=== PATIENT | female | born 1930 | race Caucasian/White ===

== ENCOUNTER 2016-08-30 12:05 | Inpatient (IN) | payer MEDICARE ==
[~2016-08-30] VITALS: Ht 162.6 cm; Wt 71.1 kg
[2016-08-30] VITALS (7 sets, daily range): BP systolic 108–183; BP diastolic 23–48; PULSE 56–72; RESP 16–22; O2SAT 93–100
[~2016-08-30 12:05] MED LIST: AMLO-39 PO; ATOR40TA69 PO; CARV3.122 PO; CLOP75TA28 PO; ENAL10TA PO; FURO-129 PO; GABA-500 PO; HYDR-3825 PO; LACT1CAP67 PO; LEVO50TA39 PO; MULT-1018 PO; OMEG-86 PO
--- NOTE | 2016-08-30 12:13 | ED.REPORT ---
HPI-Chest Pain 40 and Over Date of Service Aug 30, 2016 ED Provider: Dwight Bustamante MD 85 year old female with a history of mesenteric ischemia presents to the ED accompanied by her daughter with epigastric pain. Pain is exacerbated by eating. She was seen here in the ED one week ago for similar, at which time she received a CT scan that was negative. Five days ago she was seen here again for fecal impaction. Associated symptoms include nausea and vomiting secondary to pain. Daughter denies fever, and diarrhea. Tomorrow, the patient has a follow- up appointment with Dr. Ryan, surgery. Patient takes hydrocodone for pain. Nursing Notes Stated Complaint: CHEST, STOMACH PAIN, NAUSEA Nursing Notes Reviewed: Yes Allergies: Coded Allergies: diphenhydramine (Verified Adverse Reaction, Severe, Spasms, 08/30/16) hydromorphone (Verified Adverse Reaction, Severe, "TERRIBLE SHAKING", ) Scheduled Amlodipine (Norvasc) 5 Mg Tablet 10 MG PO DAILY Atorvastatin Calcium (Atorvastatin Calcium) 40 Mg Tablet 40 MG PO HS Carvedilol (Carvedilol) 3.125 Mg Tablet 3.125 MG PO BID Clopidogrel (Clopidogrel) 75 Mg Tablet 75 MG PO DAILY Enalapril Maleate (Enalapril Maleate) 10 Mg Tablet 20 MG PO DAILY Furosemide (Lasix) 20 Mg Tablet 20 MG PO DAILY Gabapentin (Gabapentin) 100 Mg Capsule 100 MG PO HS Lactobacillus Combination No.4 (Probiotic) 1 Each Capsule 1 EACH PO DAILY Levothyroxine (Levoxyl) 50 Mcg Tablet 50 MCG PO DAILY Multivitamin (Multi Vitamin Daily) 1 Each Tablet 1 EACH PO DAILY [place]-3S/Dha/Epa/Fish Oil/D3 (Fish Oil + D3 Softgel) Unknown Strength Capsule 1, 000 MG PO DAILY Polyethylene Glycol 3350 (Polyethylene Glycol 3350) 17 Gm Powd.pack 17 GM PO QAM Scheduled PRN Hydrocodone-Acetaminophen 7.5-325 mg (Hydrocodone-Acetaminophen 7.5-325 mg) 1 Each Tablet 1 TABLET PO Q6H PRN PRN For Pain General Time Seen by MD: 12:13 Chief Complaint Other (Epigastric Pain) Hx Obtained From: Patient, Daughter Arrived By: Walk-in Sudden in Onset?: No Onset Occurred: 1 week ago Symptom Duration: Since onset Location: : Epigastric: Substernal Quality: Painful Severity: Current: Moderate Severity: Maximum: Moderate Associated with: Reports: Nausea, Vomiting, Denies: Fever Pertinent Negative: Pt denies other symptoms Exacerbated by: Eating Pertinent Negative: Relieved by nothing Past Medical History Past Medical History Notes: Code Status: Full Code Past Medical History 1. Coronary artery disease. s/p 4 vessel CABG 2. Hypertension 3. HLD 3. CVA 4. Hypothryroidism 5. Colon cancer, s/p partial colectomy. 6. GERD with h/o hiatal hernia 7. Peripheral neuropathy 8. Varicose veins, s/p stripping Reports: Congestive heart failure Past Surgical History 1. Partial colectomy 2. 4v CABG 3. Bunionectomies 4. Vein stripping 5. Right rotator cuff surgery 6. Appendectomy 7. Hysterectomy 6. Vein stripping. 7. Mesenteric ischemia with mesenteric stenting Celiac trunk and SMA stent Family History Noncontributory Smoking History Never Smoker Social History Alcohol Use: Denies alcohol use Drug Use: Denies drug use Other Social History: Good social support, Local resident Ambulatory Status Independent Review of Systems Constitutional: Denies: Chills, Fever Respiratory: Denies: Non-productive cough, Shortness of breath GI: Reports: Abdominal pain (Epigastric), Nausea, Vomiting, Denies: Diarrhea Musculoskeletal: Denies: Back pain, Lumbar pain, Neck pain Complete sys rev & neg: except as marked. Physical Exam Initial Vital Signs Vital Signs (First) Date Time Temp Pulse Resp B/P Pulse Ox O2 Delivery O2 Flow Rate FiO2 08/30/16 12:16 36.8 72 22 183/42 100 Room Air Initial VS: Reviewed Head / Eyes: Atraumatic, Normocephalic Neck: Supple, Non-tender, Full range of motion Extremities: Vascular intact, Neuro intact, No swelling, No tenderness Skin: Warm, Dry, No cyanosis Neurologic: Alert, Oriented, Nonfocal Psychiatric: Mood/affect normal, Behavior normal, Normal thought content General/Constitutional: Awake, Alert, Well developed, Well nourished Respiratory / Chest: Breath sounds NL, Breath sounds = bilat, No respiratory distress, No rales, No rhonchi, No wheezing Cardiovascular: Heart rate NL, Regular rhythm, Heart sounds NL, No murmurs, Peripheral circulation NL, Pulses = bilaterally, No gross BP differential Abdomen: Soft, Non-tender, No guarding, No rebound, No distention Interpretation & Diagnostics Lab Results Interpretation Result Diagram: 08/30/16 1228 08/30/16 1228 Test 08/30/16 12:28 White Blood Count 7.0th/mm3 (3.8-10.1) Red Blood Count 4.30mil/mm3 (3.90-5.20) Hemoglobin 13.2g/dL (12.0-15.6) Hematocrit 38.8% (35.0-46.0) Mean Corpuscular Volume 90.2fL (81-100) Mean Corpuscular Hemoglobin 30.7pg (27.0-35.0) Mean Corpuscular Hemoglobin Concent 34.0% (32.0-37.0) Red Cell Distribution Width 12.7% (12.3-15.4) Platelet Count 201bil/L (150-400) Neutrophils (%) (Auto) 57.3% (40-74) Lymphocytes (%) (Auto) 30.5% (14-46) Monocytes (%) (Auto) 7.5% (4-12) Eosinophils (%) (Auto) 4.1% (0-5) Basophils (%) (Auto) 0.3% (0-3) Sodium Level 135mEq/L (134-144) Potassium Level 4.2mEq/L (3.5-5.2) Chloride Level 99mEq/L (97-108) Carbon Dioxide Level 20mmol/L (18-29) Blood Urea Nitrogen 30mg/dL (8-27) Creatinine 0.93mg/dL (0.57-1.00) Estimat Glomerular Filtration Rate 82mL/min (>59) Glucose Level 123mg/dL (60-99) Calcium Level 9.9mg/dL (8.5-10.1) Magnesium Level 2.7mg/dL (1.6-2.6) Total Bilirubin 0.5mg/dL (0.0-1.2) Aspartate Amino Transf (AST/SGOT) 17U/L (0-50) Alanine Aminotransferase (ALT/SGPT) 10U/L (0-32) Alkaline Phosphatase 64U/L (25-165) Troponin T < 0.010ug/L (0.0-0.011) Total Protein 7.5g/dL (6.4-8.4) Albumin 4.2g/dL (3.4-5.0) Hold Monk Top Tube Received (Received) ECG Interpretation ECG Interpretation: Sinus rhythm, rate 91 Ventricular bigeminy Prolonged [place] interval Probable left atrial enlargement Old inferior infarct Old anteroseptal infarct Lateral leads also involved Time: 12:18 Interpreted by: ED physician X-Ray Chest Interpretation Chest Xray Interpretation: IMPRESSION: No acute cardiopulmonary disease. Dictated by: Ambrose Simeon RRA Interpreted: Ana Luisa Mckeon MD on 08/30/2016 at 13:26 Transcribed by: JATIN on 08/30/2016 at 13:26 View: Portable, 1 view Interpretation / Wet Read by: Interpret - Radiologist Re-Eval/Medical Decision Source of Hx: Old records Consultation #1: Referral / Consult Name: Bobby Obrien MD Call Returned at: 12:39 Note: Discussed patient case with Dr. Obrien, Radiology. Recommends CT abdominal angiogram. Consultation #2: Referral / Consult Name: Joseph Vivas MD Consulted With: Hospitalist Call Returned at: 14:47 Commercial Insulator: Agrees with plan, Accepts admit Counseled Regarding: Diagnosis, Lab results Discharge & Departure Primary Impression: Mesenteric ischemia Disposition: ADMITTED TO HOSPITAL Discharge Condition All VS Reviewed: Yes Condition: Stable Referrals: Joseph Vivas MD (PCP) Scribe Attestation Portions of this note were transcribed by Anthony Rowe. I, Dr. Bustamante, personally performed the history, physical exam and medical decision-making; I reviewed and confirmed the accuracy of the information in the transcribed note. Signed by: Anthony Rowe. 08/30/2016, *time* copies to: Joseph Vivas MD, Kirk H MD Aug 30, 2016 12:13 ANTHONY ROWE Aug 30, 2016 12:25
[2016-08-30] MEDS ORDERED: Nitroglycerin 2% 1 Gm Ointment TOPICAL ONE (12:30)
[2016-08-30] MEDS ORDERED: Heparin 5,000 Unit/mL Inj IVPUSH PRN (12:30)
[2016-08-30] MEDS ORDERED: Heparin 25K Unit/500mL 0.45 NS 25,000 UNIT in IV Premix 1 EACH IV SCH (12:30)
[2016-08-30] MEDS ORDERED: Ondansetron 2 mg/mL 2 mL Inj ONE (12:35)
[2016-08-30 12:39] LABS: BASOPHILS % (AUTO) 0.3 % (0-3); EOSINOPHILS % (AUTO) 4.1 % (0-5); MONOCYTES % (AUTO) 7.5 % (4-12); Mean Corpuscular Hemoglobin 30.7 pg (27.0-35.0); Mean Corpuscular Volume 90.2 fL (81-100); NEUTROPHILS % (AUTO) 57.3 % (40-74); Platelet Count 201 bil/L (150-400)
[2016-08-30 13:23] LABS: Magnesium 2.7 mg/dL (1.6-2.6)
[2016-08-30 13:24] LABS: TROPONIN T < 0.010 ug/L (0.0-0.011)
--- NOTE | 2016-08-30 13:27 | DRSVH ---
PROCEDURE: X-RAY CHEST ONE VIEW, PORTABLE ([id number]) INDICATIONS: PAIN TECHNIQUE: One view of the chest was acquired. COMPARISON: [facility], CR, XR CHEST 1VW (PORTABLE), 08/23/2016, 15:45. FINDINGS: Surgical changes and devices: Median sternotomy wires. Lungs and pleura: No pleural effusions or pneumothorax. Lungs are clear. Mediastinum: Mediastinal contours appear normal. Heart size is normal. Bones and chest wall: No suspicious bony lesions. Overlying soft tissues appear unremarkable. IMPRESSION: No acute cardiopulmonary disease. Dictated by: Ambrose Simeon [facility] Interpreted: Ana Luisa Mckeon MD on 08/30/2016 at 13:26 Transcribed by: JATIN on 08/30/2016 at 13:26 Approved by: Ana Luisa Mckeon MD, PhD on 08/30/2016 at 16:44
[2016-08-30] MEDS ORDERED: POLY17PO2 PO (14:36)
[2016-08-30] MEDS ORDERED: Alum-Mag Hydrox-Simeth 30 mL Suspension PO PRN (14:50)
[2016-08-30] MEDS ORDERED: Ondansetron 2 mg/mL 2 mL Inj IVPUSH PRN (14:55)
[2016-08-30] MEDS ORDERED: Polyethylene Glycol (PEG) 17 Gm Powder PO PRN (14:55)
--- NOTE | 2016-08-30 18:00 | NUR ---
Admit Pt arrived to room 2028 via stretcher from the ED. Pt oriented to room, use of call light. Policies and procedure explained. Pt verbalized understanding. Pt alert and oriented x3. Pt has IV heparin running at 800 unit/hr to the right AC. Report given to oncoming RN.
--- NOTE | 2016-08-30 20:49 | PCM.HPMED ---
Subjective Date of Service Aug 30, 2016 Primary Provider: Admitting Physician: Bobby Obrien MD Primary Care Physician: Joseph Vivas MD Attending Physician: Bobby Obrien MD Admit Status: From the Emergency Department, 23-Hour Observation, Remote Telemetry Chief Complaint: Increased abdominal pain, concern for recurrent mesenteric ischemia History of Present Illness: This is an 85-year-old female with a recent admission for abdominal and chest pain. At that time she was concerned regarding recurrent mesenteric ischemia. She has had a SMA stent in place for about 6 months. She is having a lot of increased pain with eating over the last several months which seems to be escalating. She was admitted about 5 days ago with abdominal pain with normal CT scan angiogram indicating a patent SMA stent. She also had negative troponin and EKGs. She had improved clinically without intervention and requested discharge home did well for a few days and now has again crescendo severe abdominal and chest pain which appears to follow eating. No dyspepsia. No diarrhea. No abdominal bloating. In the ED no repeat imaging is performed and the patient was discussed with interventional radiology who thinks that they can do an angiogram and possible stent revision of the SMA tomorrow. Her daughter continues to wonder whether or not other mesenteric arteries might be causing the symptoms. She denies any dyspnea. Nausea vomiting or diaphoresis. Review of Systems: She denies headache rhinorrhea, sore throat she did have some chest pain with her abdominal pain earlier. No additional pain. All of her pain is brought on by eating. No belching. No diarrhea or blood per rectum. No difficulty urinating. No palpitations. Also reviewed and otherwise negative except as noted in history of present illness. Allergies Coded Allergies: diphenhydramine (Verified Adverse Reaction, Severe, Spasms, 08/30/16) hydromorphone (Verified Adverse Reaction, Severe, "TERRIBLE SHAKING", ) Home Medications Amlodipine (Norvasc) 5 Mg Tablet 10 MG PO DAILY Atorvastatin Calcium (Atorvastatin Calcium) 40 Mg Tablet 40 MG PO HS Carvedilol (Carvedilol) 3.125 Mg Tablet 3.125 MG PO BID Clopidogrel (Clopidogrel) 75 Mg Tablet 75 MG PO DAILY Enalapril Maleate (Enalapril Maleate) 10 Mg Tablet 20 MG PO DAILY Furosemide (Lasix) 20 Mg Tablet 20 MG PO DAILY Gabapentin (Gabapentin) 100 Mg Capsule 100 MG PO HS Lactobacillus Combination No.4 (Probiotic) 1 Each Capsule 1 EACH PO DAILY Levothyroxine (Levoxyl) 50 Mcg Tablet 50 MCG PO DAILY Multivitamin (Multi Vitamin Daily) 1 Each Tablet 1 EACH PO DAILY [place]-3S/Dha/Epa/Fish Oil/D3 (Fish Oil + D3 Softgel) Unknown Strength Capsule 1, 000 MG PO DAILY Polyethylene Glycol 3350 (Polyethylene Glycol 3350) 17 Gm Powd.pack 17 GM PO QAM Scheduled PRN Hydrocodone-Acetaminophen 7.5-325 mg (Hydrocodone-Acetaminophen 7.5-325 mg) 1 Each Tablet 1 TABLET PO Q6H PRN PRN For Pain PMH 1. Coronary artery disease. s/p 4 vessel CABG 2. Hypertension 3. HLD 3. CVA 4. Hypothryroidism 5. Colon cancer, s/p partial colectomy. 6. GERD with h/o hiatal hernia 7. Peripheral neuropathy 8. Varicose veins, s/p stripping Surgical History 1. Partial colectomy 2. 4v CABG 3. Bunionectomies 4. Vein stripping 5. Right rotator cuff surgery 6. Appendectomy 7. Hysterectomy 6. Vein stripping. 7. Mesenteric ischemia with mesenteric stenting Celiac trunk and SMA stent Family History Positive for vascular disease Social History Hx Alcohol Use: No Hx Substance Use: No Hx Tobacco Use: No Smoking Status: Never Smoker Living Arrangement: with Family Exam Vital Signs As noted Exam She is alert and oriented 3, no distress. Fluent speech. Head is normal. Normal external nose and ears. Anicteric sclerae, symmetric pupils. No facial droop, normal oropharynx. Neck is supple, normal thyroid. No adenopathy. Lungs are clear, normal effort. Heart is regular without murmur gallop or rub. Abdomen is soft nondistended without focal tenderness. No bruit. Extremities are free of edema. She has difficult to palpate pedal pulses and dusky feet with delayed cap refill but warm. Muscles with normal tone. Joints not swollen or deformed. Normal motor strength. Cranial nerves are intact. Lab and Diagnostics Result Diagram: 08/30/16 1228 08/30/16 1228 X-Rays, CTs and MRIs Chest x-ray unremarkable 12-lead ECG ECG not obtainable but said to be normal per ED doctor Assessment & Plan 1. Progressive mesenteric ischemia. POA. Arrangements have been made for interventional radiology to do a celiac angiogram tomorrow and attempt to revise the stent if clinically indicated. 2. CAD. POA. Erwin trend troponins tonight. ECG in a.m. No change to medical regimen. 3. Hypertension. POA. Usual medications. Patient is full resuscitation. She is admitted observation status with a length of stay one night anticipated Pain Evaluation: Adequate Pain Control Resuscitation Status: CPR: Attempt Resuscitation Joseph Vivas MD Aug 30, 2016 20:49 Joseph Vivas MD Aug 30, 2016 20:49
[2016-08-30] MEDS: 0.9% Sodium Chloride 1,000 ML IV SCH (20:54)
[2016-08-31] VITALS (24 sets, daily range): BP systolic 61–157; BP diastolic 29–76; PULSE 52–80; RESP 16–18; O2SAT 91–100
[2016-08-31] MEDS: 0.9% Sodium Chloride 1,000 ML IV SCH ×3 (00:53→20:53)
[2016-08-31 05:33] LABS: BASOPHILS % (AUTO) 0.6 % (0-3); EOSINOPHILS % (AUTO) 6.6 % (0-5); MONOCYTES % (AUTO) 9.2 % (4-12); Mean Corpuscular Hemoglobin 30.6 pg (27.0-35.0); NEUTROPHILS % (AUTO) 43.6 % (40-74); Platelet Count 158 bil/L (150-400)
[2016-08-31 05:53] LABS: TROPONIN T 0.01 ug/L (0.0-0.011)
--- NOTE | 2016-08-31 06:14 | NUR ---
PTT/Trop/ Synchronized labs to all be drawn w Troponin to minimize needle stick for Pt, Heparin Gtt @ 750, last Ptt Hep 50.3. Had IV therapy start new IV at beginning of shift the vein infiltrated on first flush. Pt is frustrated with her veins failing Room air, Tele SR/1st degree block /Bigeminal PVC's. NS @ 100
[2016-08-31] MEDS: Polyethylene Glycol (PEG) 17 Gm Powder PO SCH (08:30)
[2016-08-31] MEDS ORDERED: Lactated Ringer's 500 ML IV ONE (09:15)
[2016-08-31 09:25] LABS: INR 1.08 ratio
--- NOTE | 2016-08-31 09:25 | NUR ---
Miralax/Lasix held Patient going to incinerator plant laborer for procedure, miralax and lasix held per incinerator plant laborer orders.
[2016-08-31] MEDS ORDERED: Heparin 5,000 Units/500 mL NS Premix IV ONE (09:40)
[2016-08-31] MEDS ORDERED: Lactated Ringer's 1,000 ML IV ONE (09:40)
[2016-08-31] MEDS ORDERED: Heparin 1,000 Unit/mL 10 mL Inj ONE (09:41)
[2016-08-31] MEDS ORDERED: Sodium Chloride LOK Flush 10 mL Syringe IVFLUSH PRN ×2 (09:55)
[2016-08-31] MEDS ORDERED: 0.9% Sodium Chloride 1,000 ML ONE (10:15)
[2016-08-31] MEDS ORDERED: fentaNYL-PF 50 mCg/mL 2 mL Inj ONE (10:20)
[2016-08-31] MEDS ORDERED: DOPamine 800 mg/250 mL D5W Premix IV ONE (12:59)
[2016-08-31] MEDS: Atropine 1 mg/10 mL (Code) Syringe ONE (13:01)
--- NOTE | 2016-08-31 13:10 | NUR ---
Case Management: Attempted x 1 this am to deliver Medicare observation brochure - not in room - gone for procedure. Will try again later. Savanah Tabares RN
[2016-08-31 13:26] LABS: BASOPHILS % (AUTO) 0.4 % (0-3); EOSINOPHILS % (AUTO) 4.8 % (0-5); MONOCYTES % (AUTO) 6.5 % (4-12); Mean Corpuscular Hemoglobin 30.3 pg (27.0-35.0); Mean Corpuscular Volume 93.6 fL (81-100); Platelet Count 174 bil/L (150-400)
--- NOTE | 2016-08-31 13:32 | NUR ---
NARGIS PT WAS RECEIVED FROM CROTCH PIECE BASTER AT 1245. SHE DEVELOPED CP AND HYPOTENSIVE AND RAPID RESPONSE WAS CALLED. PT TAKEN TO CT EMERGENTLY AT 1320.
[2016-08-31] MEDS: Ondansetron 2 mg/mL 2 mL Inj IVPUSH PRN ×2 (13:45→14:00)
[2016-08-31] MEDS: fentaNYL-PF 50 mCg/mL 2 mL Inj ONE ×2 (13:50→14:28)
[2016-08-31 14:02] LABS: TROPONIN T < 0.010 ug/L (0.0-0.011)
[2016-08-31] MEDS ORDERED: Protamine Sulfate 10 mg/mL 5 mL Inj ONE (14:09)
[2016-08-31] MEDS: Thrombin Powder 5,000 Unit TOPICAL ONE ×2 (14:15→14:28)
--- NOTE | 2016-08-31 14:23 | DRSVH ---
PROCEDURE: CT KUB ([id number]) INDICATIONS: POST PROCEDURE TECHNIQUE: Noncontrast 5 mm thick sections acquired from the diaphragms to the symphysis. 5 mm thick coronal an d sagittal reformats were then performed. For radiation dose reduction, the following was used: aut omated exposure control, adjustment of mA and/or kV according to patient size. COMPARISON: [facility], CT, CT ANGIO AORTA RUNOFF, 09/17/2015, 14:07. FINDINGS: Image quality: Excellent. Lung bases: Small right pleural effusion. Mild by basilar atelectasis. Normal heart size. Calcificati on of the coronary vasculature. Urinary system: Both kidneys are normal in size. Contrast within the collecting system is present. N o hydronephrosis or perinephric fat stranding. Both ureters appear non-dilated throughout their expe cted courses. Bladder wall thickness is normal; no calcified bladder stones. Other solid organs: Liver and spleen are normal in size. Gallbladder is within normal limits. Panc reas is normal in contours. No adrenal nodules. Peritoneum and bowel: Large hiatal hernia. Unenhanced bowel loops demonstrate normal wall thickness and caliber. No free fluid or air. Nodes and vessels: No retroperitoneal or mesenteric adenopathy by size criteria. Aorta and inferior vena cava are normal in caliber. Abdominal wall: No ventral hernias. Pelvis: There is moderate retroperitoneal high density extending from the right common femoral arteri es superiorly into the right iliac fossa, and into the pre-vesicle extraperitoneal space. Moderate hi gh density fluid extends into the right posterior pelvis. Fat containing left femoral hernia. Bones: No suspicious bony lesions. Moderate leftward curvature of the spine at the thoracolumbar ju nction. No vertebral body compression fractures. IMPRESSION: 1. Moderate retroperitoneal and extraperitoneal hemorrhage arising from a right common femoral artery puncture. 2. Large hiatal hernia. 3. Small right pleural effusion. Dictated by: Bobby Obrien M.D. on 08/31/2016 at 14:21 Approved by: Bobby Obrien M.D. on 08/31/2016 at 14:21
--- NOTE | 2016-08-31 14:37 | DRSVH ---
PROCEDURE: 1. Selective celiac/superior mesenteric arteriography. 2. Angioplasty of common celiac/superior mesenteric artery origin stent. 3. Angioplasty of proximal superior mesenteric artery. 4. Conscious sedation x140 minutes. INDICATIONS: MESENTERIC ISCHEMIA COMPARISON: [facility], CT, CT ANGIO ABD, 08/24/2016, 14:53. [facility], XA , ARTERIOGRAM ABD SELECTIVE, 09/15/2015, 13:29. TECHNIQUE: Informed, written consent from the patient was obtained prior to the procedure. Patient wa s brought to the angiography suite, and conscious sedation was administered intravenously by residential staff, while continuous cardiorespiratory monitoring was performed. Maximal sterile barrier t echnique, hand hygiene, skin preparation, and sterile ultrasound technique (if ultrasound was utilize d) was followed. A mask, sterile gown, sterile gloves, a large sterile sheet, hand hygiene, and 2% ch lorhexidine or iodine was utilized for skin antisepsis. The bilateral groins were prepped and draped sterilely, and the skin and subcutaneous tissues overlying the right common femoral artery were infus ed with lidocaine. The right common femoral artery was accessed retrograde with a micropuncture set. A variety of guide catheters and angiography catheters were used in an attempt to gain stable access to the common celiac/superior mesenteric artery trunk. This was eventually successfully performed usi ng a 5 [place] Sos Omni catheter advanced through a 6 Japanese MONI guide catheter (with the MONI guide ca theter advanced over the primary curve/apex of the Sos Omni catheter for additional support). Intrave nous was administered. An 018 SV5 wire was advanced into the superior mesenteric artery. A 20 mm long balloon was used to angioplasty the proximal superior mesenteric artery, as well as the origin of th e common celiac/superior mesenteric artery stent. The balloon was also used to angioplasty the common celiac/superior mesenteric artery stent, just distal to the stent. Repeat angiography was performed. The sheath was removed, and the right groin was closed with a Starclose device. Shortly following the procedure, the patient developed hypotension. CT KUB at that time revealed mode rate retroperitoneal hemorrhage. Pseudoaneurysm of the right common femoral artery was discovered by Doppler examination. Graded compression of the pseudoaneurysm was performed, which was resolved at th e time of this dictation. FLUOROSCOPY TIME: 35.1 minutes FINDINGS: High-grade stenosis just distal to the superior mesenteric artery/celiac artery origin jasper nt was present, resolved following 6 mm and opacity. High-grade stenosis within the proximal superior mesenteric artery is present, with only mild residual stenosis following angioplasty. IMPRESSION: 1. High-grade in-stent and peristent stenosis within the proximal celiac/superior mesenteric artery t runk, resolved following 6 mm angioplasty. 2. High-grade stenosis within the proximal superior mesenteric artery, with only mild residual stenos is following 6 mm angioplasty. 3. Right groin pseudoaneurysm was encountered following the procedure, which responded to graded comp ression. Dictated by: Bobby Obrien M.D. on 08/31/2016 at 14:35 Approved by: Bobby Obrien M.D. on 08/31/2016 at 14:35
--- NOTE | 2016-08-31 16:07 | NUR ---
Rapid response Pt hypotensive, having abdominal pain and tenderness at site, MD made aware, FLuids and dopamine starting with acceptable results. Pt Taken to CT, some bleeding was found, MD aware, new orders of US obtained, US performed and pseudoaneurysm found, manual pressure applied for 20 minutes x2 per US tech and blend technician. US imaging done post manual pressure showed resolved pseudoaneurysm. After stable recovery in NARGIS pt tranferred to CCU. Report given to Caitlin Conklin. Pt family was updated throughout the day on patient status, pt belongings and family transferred to room 2015 at approximately 1610.
[2016-08-31] MEDS ORDERED: Acetaminophen IV 1,000 MG in IV Premix 1 EACH IV PRN (16:15)
--- NOTE | 2016-08-31 16:31 | DRSVH ---
PROCEDURE: US DUPLEX DOPPLER UNILATERAL LEG ARTERIES, RIGHT INDICATIONS: RT PSEUDO COMPRESSION TECHNIQUE: Color and pulse Doppler interrogation was performed of the right lower extremity arterial system, wit h image documentation. COMPARISON: None. FINDINGS: Small right groin pseudoaneurysm was initially present involving the right common femoral artery status post recent interventional procedure. Sonographic compression of the pseudoaneurysm wa s performed at 2:15 minute intervals which didn't revealed complete occlusion of the right groin pseu doaneurysm. The patient was reexamined roughly 2 hours after the initial assessment which again demo nstrated complete occlusion of the right groin pseudoaneurysm. IMPRESSION: Small right groin pseudoaneurysm initially demonstrated with 2:15 minute intervals up son ographic compression which completely thrombosed aneurysm. Dictated by: Ambrose BUCHANAN Interpreted: Bobby Obrien MD on 08/31/2016 at 16:17 Transcribed by: KARI on 08/31/2016 at 16:17 Approved by: Bobby Obrien M.D. on 08/31/2016 at 16:33
--- NOTE | 2016-08-31 16:45 | NUR ---
Social Work: Initial Assessment D: Per EMR review, pt is an 85 year old female admitted for mesenteric ischemia. Pt is Medicare with [employer] Supplement. PCP is Joseph Vivas MD. NOK Is Narcisa Linder, . Advanced directives information on file. Readmit score is moderate, 3/8. Pt is a readmit, discharged home last week with no sw needs. MINGLE OPERATOR met with pt and daughter at bedside. Sw role explained. See initial assessment. Pt lives at home in [place], alone. Family/Daughter live across the street. Pt is I at baseline, continues to drive and uses no DME. Pt does own a walker. Pt currently in CCU status. A: Pt who is I at baseline. P: Anticipate discharge home via POV pending clinical course; MINGLE OPERATOR to rule out any discharge needs including possible home health. MINGLE OPERATOR to continue to follow. NATALIIA Wyman Addendum: 08/31/16 at 1649 by RANDA GIRARD Amended: Links added.
--- NOTE | 2016-08-31 20:24 | PCM.PNMED ---
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 Admitted (08/30) for possible stent revision of the SMA by interventional radiology. Admitted to the [facility] overnight. Today patient is somewhat anxious about the upcoming procedure. She endorses abdominal pain, nausea, diarrhea and black/ tarry stool. Denies chest pain, palpitations, shortness of breath, vomiting, headaches, or dizziness. Exam Vital Signs Vital Sign - Last Date Time Temp Pulse Resp B/P Pulse Ox O2 Delivery O2 Flow Rate FiO2 08/31/16 14:30 61 16 109/76 08/31/16 14:30 99 Nasal Cannula 2.00 08/31/16 09:34 36.9 Intake and Output 08/30/16 08/30/16 08/31/16 Cumulative From/Thru 15:00 23:00 07:00 08/30/16 12:16 - 08/31/16 06:44 Intake Total 1026 ml 1026 ml Output Total 400 ml 400 ml Balance 626 ml 626 ml Intake Oral 0 ml 0 ml IV Total 1026 ml 1026 ml Output Urine Total 400 ml 400 ml Exam General: Well-developed, pale, elderly female, appropriately interactive HEENT: Normocephalic, atraumatic. External ears without defect. Pupils equal, round, and reactive to light and accommodation. Anicteric sclerae, moist conjunctivae, and no lid lag. Oropharynx free of erythema and cobble stoning with moist mucosa. Neck: Supple with full range of motion. No jugular venous distension. No bruits. No lymphadenopathy or thyromegaly. Cardiovascular: Regular rate and rhythm with no murmurs, rubs, or gallops appreciated Pulmonary: Clear to auscultation bilaterally with no crackles, wheezes, or rhonchi. Normal respiratory effort with no use of accessory muscles. Abdomen: Bowel tones present. Soft, diffusely tender to palpation, nondistended. No hepatosplenomegaly or masses appreciated. Extremities: No clubbing, cyanosis, edema, or lymphadenopathy appreciated. Skin: Normal temperature, turgor, and texture; no rash, ulcers, or subcutaneous nodules appreciated. Neurological: Cranial nerves grossly intact. Normal muscle strength, tone, and bulk. No known gait impairment. Psychiatric: Normal mood and affect. Alert and oriented to person, place, and time. IVs and Medications Medications Reviewed: Medications were reviewed in detail Lab and Diagnostics Magnesium Level 2.7 Prothrombin Time 11.6, Prothromb Time International Ratio 1.08, Activated Partial Thromboplast Time 50.3, Total Bilirubin 0.4, Aspartate Amino Transf (AST /SGOT) 14, Alanine Aminotransferase (ALT/SGPT) 8, Alkaline Phosphatase 48, Total Protein 5.6, Albumin 3.3 Lactic Acid Level 1.9 White Blood Count 5.7, Red Blood Count 3.43, Hemoglobin 10.4, Hematocrit 32.1, Mean Corpuscular Volume 93.6, Mean Corpuscular Hemoglobin 30.3, Mean Corpuscular Hemoglobin Concent 32.4, Red Cell Distribution Width 12.6, Platelet Count 174, Neutrophils (%) (Auto) 50.0, Lymphocytes (%) (Auto) 37.9, Monocytes ( %) (Auto) 6.5, Eosinophils (%) (Auto) 4.8, Basophils (%) (Auto) 0.4 Sodium Level 138, Potassium Level 4.3, Chloride Level 105, Carbon Dioxide Level 21, Blood Urea Nitrogen 21, Creatinine 0.82, Estimat Glomerular Filtration Rate 95, Glucose Level 118, Calcium Level 8.5, Troponin T < 0.010 Result Diagram: 08/31/16 1317 08/31/16 1317 X-Rays, CTs and MRIs X-RAY CHEST ONE VIEW, PORTABLE (08/31/16) IMPRESSION: No acute cardiopulmonary disease. Dictated by: Ambrose Simeon [facility] Interpreted: Ana Luisa Mckeon MD on 08/30/2016 at 13:26 Transcribed by: JATIN on 08/30/2016 at 13:26 Approved by: Ana Luisa Mckeon MD, PhD on 08/30/2016 at 16:44 PROCEDURE: Bobby Obrien M.D. on 08/31/2016 at 14:35 1. Selective celiac/superior mesenteric arteriography. 2. Angioplasty of common celiac/superior mesenteric artery origin stent. 3. Angioplasty of proximal superior mesenteric artery. 4. Conscious sedation x140 minutes. IMPRESSION: 1. High-grade in-stent and peristent stenosis within the proximal celiac/ superior mesenteric artery trunk, resolved following 6 mm angioplasty. 2. High-grade stenosis within the proximal superior mesenteric artery, with only mild residual stenosis following 6 mm angioplasty. 3. Right groin pseudoaneurysm was encountered following the procedure, which responded to graded compression. CT KUB (08/31/16) IMPRESSION: 1. Moderate retroperitoneal and extraperitoneal hemorrhage arising from a right common femoral artery puncture. 2. Large hiatal hernia. 3. Small right pleural effusion. Dictated and approved by: Bobby Obrien M.D. on 08/31/2016 at 14:21 US DUPLEX DOPPLER UNILATERAL LEG ARTERIES, RIGHT IMPRESSION: Small right groin pseudoaneurysm initially demonstrated with 2:15 minute intervals up sonographic compression which completely thrombosed aneurysm. Dictated by: Ambrose BUCHANAN Interpreted: Bobby Obrien MD on 08/31/2016 at 16: 17 Transcribed by: KARI on 08/31/2016 at 16:17 Approved by: Bobby Obrien M.D. on 08/31/2016 at 16:33 Assessment & Plan Catalina Meza is an 85-year-old lady with a past medical history significant for mesenteric ischemia with stenting of the celiac trunk and SMA, coronary artery disease s/p 4 vessel CABG, hypertension, hyperlipidemia, CVA, and colon cancer s /p partial colectomy who presented to the ED with worsening abdominal pain. Admitted (08/30) for possible stent revision of the SMA by interventional radiology. 1. Pseudoaneurysm, right groin. Active. - Noted on ultrasound following elective celiac/superior mesenteric arteriography. - Responded to graded compression. Associated with retroperitoneal/ extraperitoneal hemorrhage. - Continue IV fluids and trend H/H 2. Mesenteric ischemia, s/p celiac trunk and SMA stent placement. Present on admission. Active. - Celiac/superior mesenteric arteriography, per Interventional radiology with angioplasty. - Per IR, patient with persistent stenosis celiac/SMA trunk, resolved following angioplasty. - Morphine IV, 1-2mg prn for pain. - IV fluids, trend H/H 3. Coronary status post 4-vessel CABG with stenting and peripheral arterial disease. - Continue aspirin, clopidogrel and statin therapy. 4. Heart failure w/reduced EF, chronic. Present on admission. Active. - Pt not in acute exacerbation. Hypotensive on arrival to CCU. - Will hold home medications in setting of hypotension. Resume when hemodynamically stable. - Home medications amlodipine, carvedilol, enalapril, furosemide. 5. Chronic Hypertension, present on admission. - Continue Enalapril and Amlodipine - Trend troponin 6. Chronic anemia, in setting of acute retroperitoneal/extraperitoneal hemorrhage. - Pt type and crossed - Trend H/H - Transfusion threshold Hb < 7.0. 7. Hypothyroidism, chronic. Present on admission. Presumed stable. - Resume levothyroxine 50 mcg daily 8. Hyperlipidemia, chronic. Present on admission. Active. - Continue home dosing atorvastatin, 40mg po hs 9. Hyperglycemia, unknown chronicity. Present on admission. Active. - No known hx of diabetes, HbA1c on 04/25/16 was 6.1. - Serum glucose on admission, 118. - Bedside glucose monitoring - Low-dose correctional insulin, per protocol. Acetaminophen-fever/headache/mild/moderate pain Antiemetics, as needed Bowel regimen, as needed. High risk medications: IV morphine as needed Pain Evaluation: Adequate Pain Control VTE Mechanical Devices: Intermittant Pneumatic CD Resuscitation Status: CPR: Attempt Resuscitation Attending Statement The patient was seen and examined together with Dr. Lira on 08/31/2016 and I agree with the history, exam and plan as outlined in the note above. . Rosalba Lira DO Aug 31, 2016 15:15 Ken Mckay MD Sep 14, 2016 17:21
[2016-09-01] VITALS (8 sets, daily range): BP systolic 78–152; BP diastolic 32–61; PULSE 51–68; RESP 16–18; O2SAT 92–99
--- NOTE | 2016-09-01 02:13 | NUR ---
At approx. 0045 pt started c/o chest pain and left arm pain with difficulty breathing. 2 lpm o2 put on, troponin drawn and was negative. Ekg done which was unremarkable and unchanged from previous ekg. 2 mg morphine also given which seemed to resolve chest pain. Pt is now sleeping and denies chest pain or sob. Arm pain also resloved. Will continue to closely monitor.
[2016-09-01 03:48] LABS: BASOPHILS % (AUTO) 0.2 % (0-3); EOSINOPHILS % (AUTO) 2.6 % (0-5); MONOCYTES % (AUTO) 9.4 % (4-12); Mean Corpuscular Hemoglobin 30.5 pg (27.0-35.0); Mean Corpuscular Volume 94.4 fL (81-100); Platelet Count 131 bil/L (150-400)
[2016-09-01 04:18] LABS: Magnesium 1.9 mg/dL (1.6-2.6)
[2016-09-01] MEDS: 0.9% Sodium Chloride 1,000 ML IV SCH ×3 (06:53→16:53)
[2016-09-01] MEDS: Polyethylene Glycol (PEG) 17 Gm Powder PO SCH (08:47)
--- NOTE | 2016-09-01 13:49 | PCM.PNMED ---
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 Admitted (08/30) for possible stent revision of the SMA by interventional radiology. Patient is resting this morning and appears comfortable. She is easily aroused and states that she is feeling much better. She reports an episode of chest pain last night following a blood draw. A stat EKG was done which showed no acute ischemic changes and troponin was negative. She received 2 mg of IV morphine with resolution of symptoms. Today she is asking to eat, stating that she hasn't eaten in days and is very hungry. She endorses abdominal as well as right groin discomfort. Denies nausea, vomiting, chest pain, palpitations, shortness of breath, headaches or dizziness. Overnight patient reported chest pain, workup/evaluation as above. No evidence or ongoing symptoms concerning for cardiac etiology. Exam Vital Signs Vital Sign - Last Date Time Temp Pulse Resp B/P Pulse Ox O2 Delivery O2 Flow Rate FiO2 09/01/16 04:30 37.0 51 16 105/40 95 Room Air 08/31/16 16:30 2.00 Intake and Output 08/31/16 08/31/16 09/01/16 Cumulative From/Thru 15:00 23:00 07:00 08/30/16 12:16 - 09/01/16 05:38 Intake Total 2087 ml 320 ml 3433 ml Output Total 800 ml 1200 ml Balance 2087 ml -480 ml 2233 ml Intake Oral 500 ml 320 ml 820 ml IV Total 1587 ml 2613 ml Output Urine Total 800 ml 1200 ml # Voids 1 2 3 # Bowel Movements 0 0 0 Exam General: Well-developed, pale, elderly female, appropriately interactive HEENT: Normocephalic, atraumatic. External ears without defect. Pupils equal, round, and reactive to light and accommodation. Anicteric sclerae. Moist mucosa. Neck: Supple. No jugular venous distension.No lymphadenopathy or thyromegaly. Cardiovascular: Regular rate and rhythm with no murmurs, rubs, or gallops appreciated Pulmonary: Clear to auscultation bilaterally with no crackles, wheezes, or rhonchi. Normal respiratory effort with no use of accessory muscles. Abdomen: Bowel tones present. Soft, diffusely tender to palpation, nondistended. No hepatosplenomegaly or masses appreciated. Bruising surround the right femoral cath site, no signs of active bleeding, no hematoma. Extremities: No clubbing, cyanosis, edema, or lymphadenopathy appreciated. Skin: Normal temperature, turgor, and texture; no rash, ulcers, or subcutaneous nodules appreciated. Neurological: Cranial nerves grossly intact. Alert and oriented. Generalized weakness and deconditioning. IVs and Medications Medications Reviewed: Medications were reviewed in detail Lab and Diagnostics Troponin T 0.010 White Blood Count 6.2, Red Blood Count 2.49, Hemoglobin 7.6, Hematocrit 23.5, Mean Corpuscular Volume 94.4, Mean Corpuscular Hemoglobin 30.5, Mean Corpuscular Hemoglobin Concent 32.3, Red Cell Distribution Width 12.4, Platelet Count 131, Neutrophils (%) (Auto) 67.0, Lymphocytes (%) (Auto) 20.6, Monocytes ( %) (Auto) 9.4, Eosinophils (%) (Auto) 2.6, Basophils (%) (Auto) 0.2 Sodium Level 141, Potassium Level 4.3, Chloride Level 109, Carbon Dioxide Level 19, Blood Urea Nitrogen 20, Creatinine 0.88, Estimat Glomerular Filtration Rate 87, Glucose Level 92, Lactic Acid Level 0.8, Calcium Level 8.1, Phosphorus Level 4.0, Magnesium Level 1.9, Total Bilirubin 0.3, Aspartate Amino Transf (AST /SGOT) 12, Alanine Aminotransferase (ALT/SGPT) 5, Alkaline Phosphatase 38, Total Protein 4.5, Albumin 2.7 Result Diagram: 09/01/16 0320 09/01/16 0320 X-Rays, CTs and MRIs X-RAY CHEST ONE VIEW, PORTABLE (08/31/16) IMPRESSION: No acute cardiopulmonary disease. Dictated by: Ambrose Simeon RRA Interpreted: Ana Luisa Mckeon MD on 08/30/2016 at 13:26 Transcribed by: JATIN on 08/30/2016 at 13:26 Approved by: Ana Luisa Mckeon MD, PhD on 08/30/2016 at 16:44 PROCEDURE: Bobby Obrien M.D. on 08/31/2016 at 14:35 1. Selective celiac/superior mesenteric arteriography. 2. Angioplasty of common celiac/superior mesenteric artery origin stent. 3. Angioplasty of proximal superior mesenteric artery. 4. Conscious sedation x140 minutes. IMPRESSION: 1. High-grade in-stent and peristent stenosis within the proximal celiac/ superior mesenteric artery trunk, resolved following 6 mm angioplasty. 2. High-grade stenosis within the proximal superior mesenteric artery, with only mild residual stenosis following 6 mm angioplasty. 3. Right groin pseudoaneurysm was encountered following the procedure, which responded to graded compression. CT KUB (08/31/16) IMPRESSION: 1. Moderate retroperitoneal and extraperitoneal hemorrhage arising from a right common femoral artery puncture. 2. Large hiatal hernia. 3. Small right pleural effusion. Dictated and approved by: Bobby Obrien M.D. on 08/31/2016 at 14:21 US DUPLEX DOPPLER UNILATERAL LEG ARTERIES, RIGHT IMPRESSION: Small right groin pseudoaneurysm initially demonstrated with 2:15 minute intervals up sonographic compression which completely thrombosed aneurysm. Dictated by: Ambrose Simeon RRTyrese Interpreted: Bobby Obrien MD on 08/31/2016 at 16: 17 Transcribed by: KARI on 08/31/2016 at 16:17 Approved by: Bobby Obrien M.D. 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 Admitted (08/30) for possible stent revision of the SMA by interventional radiology. 1. Pseudoaneurysm, right groin. Active. - Noted on ultrasound following elective celiac/superior mesenteric arteriography. - Responded to graded compression. Associated with retroperitoneal/ extraperitoneal hemorrhage. - H/H stable overnight and up again this morning (8.4/25.3) - Continue to monitor for signs of active bleeding. 2. Mesenteric ischemia, s/p celiac trunk and SMA stent placement. Present on admission. Active. - Celiac/superior mesenteric arteriography, per Interventional radiology with angioplasty. - Per IR, patient with persistent stenosis celiac/SMA trunk, resolved following angioplasty. - Morphine IV, 1-2mg prn for pain. - H/H stable overnight and up again this morning (8.4/25.3) - Advance diet as tolerated, continue IV fluids for now until patient eating and drinking better. 3. Coronary status post 4-vessel CABG with stenting and peripheral arterial disease. - Continue aspirin, clopidogrel and statin therapy. 4. Heart failure w/reduced EF, chronic. Present on admission. Active. - Pt not in acute exacerbation. Hypotensive on arrival to CCU, likely secondary to #1. - Will hold home medications in setting of hypotension. Resume when hemodynamically stable. - Home medications amlodipine, carvedilol, enalapril, furosemide. 5. Chronic Hypertension, present on admission. - Continue Enalapril and Amlodipine, when appropriate. Hold for now. - Troponin negative x5 6. Chronic anemia, in setting of acute retroperitoneal/extraperitoneal hemorrhage. - Pt type and crossed - H/H stable, 8.4/25.3 today - Transfusion threshold Hb < 7.0. 7. Hypothyroidism, chronic. Present on admission. Presumed stable. - Resume levothyroxine 50 mcg daily 8. Hyperlipidemia, chronic. Present on admission. Active. - Continue home dosing atorvastatin, 40mg po hs 9. Hyperglycemia, unknown chronicity. Present on admission. Active. - No known hx of diabetes, HbA1c on 04/25/16 was 6.1. - Serum glucose on admission, 118. - Bedside glucose monitoring - Low-dose correctional insulin, per protocol. Acetaminophen-fever/headache/mild/moderate pain Antiemetics, as needed Bowel regimen, as needed. High risk medications: IV morphine as needed Disposition: Patient deconditioned and quite weak. Physical therapy to evaluate and family has requested [facility] in [facility] for potential rehab. Patient has gone there in the past for rehab. Pain Evaluation: Adequate Pain Control GI Prophylaxis: Not indicated VTE Prophylaxis: SCDs VTE Mechanical Devices: Intermittant Pneumatic CD Resuscitation Status: CPR: Attempt Resuscitation Attending Statement The patient was seen and examined together with Dr. Lira on 09/01/2017 and I agree with the history, exam and plan as outlined in the note above. . Rosalba Lira DO Sep 01, 2016 07:36 Ken Mckay MD Sep 14, 2016 17:21
--- NOTE | 2016-09-01 17:05 | NUR ---
Social Work: Continued Discharge Planning D: Pt discussed in morning rounds. Pt is not medically stable for discharge. Pt in CCU bed for Pseudoaneurysm, right groin. Per bedside RN, pt is very weak and requiring assistance to BSC. MD has ordered PT evaluation. Family believes that pt will require skills rehab at time of discharge and would like a referral sent to [facility]. Family provided with SNF Choice list. Referral faxed to [facility]. Access provided. PPW and PASSR complete and on chart. Pt ordered inpatient on 08/31/16; Pt will need two more midnights to qualify for skilled rehab benefit. A: Pt who will likely require SNF at time of discharge. P: Anticipate pt to discharge to SNF pending PT evaluation and qualifying stay under Medicare; [employer] to continue to follow. NATALIIA Wyman
--- NOTE | 2016-09-01 18:12 | NUR ---
Inpatient status effective 08/31/16, JELENA signed today
--- NOTE | 2016-09-01 18:16 | NUR ---
Uneventful Day Pt AAOx4. Denies CP/Pressure and LUE pain. Denies abd pain. R groin site soft, slightly tender, DP and PT pulses weak but palpable. Tele SB 50s to SR 60s, PVCs. BPs stable. SpO2 90% on RA when asleep, so placed pt on 2L NC. When awake SpO2 is in mid 90s on RA. Uses call light to make needs known.
[2016-09-02] VITALS (10 sets, daily range): BP systolic 110–138; BP diastolic 46–56; PULSE 40–74; RESP 15–16; O2SAT 91–98
[2016-09-02] MEDS: 0.9% Sodium Chloride 1,000 ML IV SCH ×5 (01:40→22:53)
[2016-09-02] MEDS: HYDROcodone-APAP 7.5-325 mg Tablet PO PRN ×2 (04:20→17:55)
--- NOTE | 2016-09-02 04:27 | NUR ---
Transfer/Abdominal Pain Patient moved to PSYCHIATRIC room 2028 at 1900. Sleeping well overnight without disturbance. Patient put light on at 0420 to report waking up with abdominal discomfort that also affects her chest and neck. Patient states that this is a pain she has had many times before. Hydrocodone-acetaminophen given per orders. Continue to monitor.
[2016-09-02 04:56] LABS: Mean Corpuscular Volume 93.5 fL (81-100)
[2016-09-02] MEDS: Polyethylene Glycol (PEG) 17 Gm Powder PO SCH ×2 (08:59→09:01)
--- NOTE | 2016-09-02 13:46 | NUR ---
Evaluation completed. Please go to "Notes" then click on "Assessments and Notes" (bottom left corner of screen). Then select appropriate discipline tab on top of screen.
--- NOTE | 2016-09-02 18:35 | NUR ---
Pain She was c/o 6/10 abdominal pain this evening. Gave 1 tab of [place]. Upon reassessment she stated that her pain was declining and was now a 4/10. Care continues.
[2016-09-03] VITALS (7 sets, daily range): BP systolic 114–136; BP diastolic 45–51; PULSE 58–71; RESP 15–20; O2SAT 89–98
--- NOTE | 2016-09-03 00:43 | PCM.PNMED ---
Subjective Date of Service Sep 03, 2016 Subjective Catalina Meza is an 85-year-old lady with a past medical history significant for mesenteric ischemia with stenting of the celiac trunk and SMA, coronary artery disease s/p 4 vessel CABG, hypertension, hyperlipidemia, CVA, and colon cancer s /p partial colectomy who presented to the [facility] ED with worsening abdominal pain and was admitted for possible stent revision of the SMA by interventional radiology and recurrent chronic mesenteric ischemia. Hospital day #4. Overnight: The patient had recurrence of her abdominal pain similar to her previous episodes of mesenteric ischemia. The patient is resting in bed comfortably and in no acute distress. She reports that she feels as though her abdominal pain last night was reminiscent of her previous abdominal pain. She does endorse melena. She denies headache, chest pain, shortness of breath, abdominal pain, nausea, vomiting, fever, chills , dysuria, diarrhea or constipation. She has a normal appetite. She is voiding and eliminating without difficulty. She is up ambulating in the halls with physical therapy. . Exam Vital Signs Vital Sign - Last Date Time Temp Pulse Resp B/P Pulse Ox O2 Delivery O2 Flow Rate FiO2 09/02/16 23:49 37.0 40 16 138/56 91 Nasal Cannula 2.00 09/02/16 16:02 97 Intake and Output 09/02/16 09/02/16 09/03/16 Cumulative From/Thru 15:00 23:00 07:00 08/30/16 12:16 - 09/02/16 19:22 Intake Total 720 ml 4873 ml Output Total 1050 ml 3179 ml Balance -330 ml 1694 ml Intake Oral 720 ml 2260 ml IV Total 2613 ml Output Urine Total 1050 ml 3177 ml Urine/Stool Mix 2 ml # Voids 3 # Bowel Movements 1 Exam General: Well-developed, pale, elderly female, appropriately interactive HEENT: Normocephalic, atraumatic. External ears without defect. Pupils equal, round, and reactive to light and accommodation. Anicteric sclerae. Moist mucosa. Neck: Supple. No jugular venous distension.No lymphadenopathy or thyromegaly. Cardiovascular: Regular rate and rhythm with no murmurs, rubs, or gallops appreciated. Pulmonary: Clear to auscultation bilaterally with no crackles, wheezes, or rhonchi. Normal respiratory effort with no use of accessory muscles. Abdomen: Bowel tones present. Soft, diffusely tender to palpation, nondistended. No hepatosplenomegaly or masses appreciated. Bruising surround the right femoral cath site, no signs of active bleeding, no hematoma. Extremities: No clubbing, cyanosis, edema, or lymphadenopathy appreciated. Skin: Normal temperature, turgor, and texture; no rash, ulcers, or subcutaneous nodules appreciated. Neurological: Cranial nerves grossly intact. Alert and oriented. Generalized weakness and deconditioning. . IVs and Medications Medications Reviewed: Medications were reviewed in detail Lab and Diagnostics Item Value Date Time Calcium Level 8.6 mg/dL 09/02/16444 Total Bilirubin 0.3 mg/dL 09/02/16 0445 Aspartate Amino Transf (AST/SGOT) 14 U/L 09/02/16 0445 Alanine Aminotransferase (ALT/SGPT) 7 U/L 09/02/16 044 Alkaline Phosphatase 43 U/L 09/02/16 0445 Total Protein 5.0 g/dL L 09/02/16 0445 Albumin 3.1 g/dL L 09/02/16 0445 Result Diagram: 09/02/16 0445 09/02/16 044 Microbiology MRSA screen negative. . X-Rays, CTs and MRIs X-RAY CHEST ONE VIEW, PORTABLE (08/31/16) IMPRESSION: No acute cardiopulmonary disease. Dictated by: Ambrose Simeon [facility] Interpreted: Ana Luisa Mckeon MD on 08/30/2016 at 13:26 Transcribed by: JATIN on 08/30/2016 at 13:26 Approved by: Ana Luisa Mckeon MD, PhD on 08/30/2016 at 16:44 PROCEDURE: Bobby Obrien M.D. on 08/31/2016 at 14:35 1. Selective celiac/superior mesenteric arteriography. 2. Angioplasty of common celiac/superior mesenteric artery origin stent. 3. Angioplasty of proximal superior mesenteric artery. 4. Conscious sedation x140 minutes. IMPRESSION: 1. High-grade in-stent and peristent stenosis within the proximal celiac/ superior mesenteric artery trunk, resolved following 6 mm angioplasty. 2. High-grade stenosis within the proximal superior mesenteric artery, with only mild residual stenosis following 6 mm angioplasty. 3. Right groin pseudoaneurysm was encountered following the procedure, which responded to graded compression. CT KUB (08/31/16) IMPRESSION: 1. Moderate retroperitoneal and extraperitoneal hemorrhage arising from a right common femoral artery puncture. 2. Large hiatal hernia. 3. Small right pleural effusion. Dictated and approved by: Bobby Obrien M.D. on 08/31/2016 at 14:21 US DUPLEX DOPPLER UNILATERAL LEG ARTERIES, RIGHT IMPRESSION: Small right groin pseudoaneurysm initially demonstrated with 2:15 minute intervals up sonographic compression which completely thrombosed aneurysm. Dictated by: Ambrose Simeon [facility] Interpreted: Bobby Obrien MD on 08/31/2016 at 16: 17 Transcribed by: KARI on 08/31/2016 at 16:17 Approved by: Bobby Obrien M.D. on 08/31/2016 at 16:33 . Assessment & Plan Catalina Meza is an 85-year-old lady with a past medical history significant for mesenteric ischemia with stenting of the celiac trunk and SMA, coronary artery disease s/p 4 vessel CABG, hypertension, hyperlipidemia, CVA, and colon cancer s /p partial colectomy who presented to the [facility] ED with worsening abdominal pain and was admitted for possible stent revision of the SMA by interventional radiology and recurrent chronic mesenteric ischemia. Hospital day #4. 1. Pseudoaneurysm, right groin. Stable. - Noted on ultrasound following elective celiac/superior mesenteric arteriography,angioplasty. - Responded to graded compression. Associated with retroperitoneal/ extraperitoneal hemorrhage. - H/H stable overnight and up again this morning (8.4/25.3) - Continue to monitor for signs of active bleeding. 2. Chronic mesenteric ischemia, s/p celiac trunk and SMA stent placement, present on admission. Recurrent. - Celiac/superior mesenteric arteriography, per Interventional radiology with angioplasty. - Per IR, patient with persistent stenosis celiac/SMA trunk, resolved following angioplasty. - Morphine IV, 1-2 mg prn for pain. - Hemoglobin and hematocrit stable but low. - Continue to advance diet as tolerated. - IV fluids were discontinued and encourage patient to take an by mouth hydration. - Will order lactic acid if abdominal pain continues to recur. 3. Coronary status post 4-vessel CABG with stenting and peripheral arterial disease. - Continue aspirin, clopidogrel and statin therapy. 4. Heart failure w/reduced EF, chronic. Present on admission. Active. - Pt not in acute exacerbation. Hypotensive on arrival to CCU, likely secondary to #1. - Will hold home medications in setting of hypotension. Resume when hemodynamically stable. - Home medications amlodipine, carvedilol, enalapril, furosemide. 5. Chronic Hypertension, present on admission. - Continue Enalapril and Amlodipine, when appropriate. Hold for now. - Troponin negative x5 6. Chronic anemia, in setting of acute retroperitoneal/extraperitoneal hemorrhage. - Pt type and crossed - H/H stable, 8.4/25.3 today - Transfusion threshold Hb < 7.0. 7. Hypothyroidism, chronic. Present on admission. Presumed stable. - Resume levothyroxine 50 mcg daily 8. Hyperlipidemia, chronic. Present on admission. Active. - Continue home dosing atorvastatin, 40mg po hs 9. Hyperglycemia, unknown chronicity. Present on admission. Active. - No known hx of diabetes, HbA1c on 04/25/16 was 6.1. - Serum glucose on admission, 118. - Bedside glucose monitoring - Low-dose correctional insulin, per protocol. Acetaminophen-fever/headache/mild/moderate pain Antiemetics, as needed Bowel regimen, as needed. High risk medications: IV morphine as needed Disposition: Patient deconditioned and quite weak. Physical therapy to evaluate and family has requested [facility] in [facility] for potential rehab. Patient has gone there in the past for rehab. GI Prophylaxis: Not indicated VTE Prophylaxis: SCDs VTE Mechanical Devices: Intermittant Pneumatic CD Resuscitation Status: CPR: Attempt Resuscitation Attending Statement The patient was seen and examined together with Dr. Lopez on 09-02-16 and I agree with the history, exam and plan as outlined in the note above. Please note that the date of service and patient visit is 09-02-16. Lucero Lopez DO Sep 03, 2016 00:43 Codie Hopkins MD Sep 03, 2016 17:12
[2016-09-03] MEDS: 0.9% Sodium Chloride 1,000 ML IV SCH ×3 (03:46→07:36)
[2016-09-03 05:29] LABS: BASOPHILS % (AUTO) 0.3 % (0-3); EOSINOPHILS % (AUTO) 4.9 % (0-5); MONOCYTES % (AUTO) 10.3 % (4-12); Mean Corpuscular Hemoglobin 29.5 pg (27.0-35.0); Mean Corpuscular Volume 94.5 fL (81-100); NEUTROPHILS % (AUTO) 60.6 % (40-74); Platelet Count 126 bil/L (150-400)
[2016-09-03] MEDS: Polyethylene Glycol (PEG) 17 Gm Powder PO SCH (10:52)
--- NOTE | 2016-09-03 15:22 | PCM.PNMED ---
Subjective Date of Service Sep 03, 2016 Subjective Catalina Meza is an 85-year-old lady with a past medical history significant for mesenteric ischemia with stenting of the celiac trunk and SMA, coronary artery disease s/p 4 vessel CABG, hypertension, hyperlipidemia, CVA, and colon cancer s /p partial colectomy who presented to the ED with worsening abdominal pain. Admitted for stent revision of the SMA by interventional radiology. Hospital day #5. Patient is sitting up in bed and appears comfortable. She reports abdominal discomfort and decreased appetite but states that her abdominal pain does is not worse after eating. Patient was noted to have melena the night before last and no bowel movements last night. Denies nausea, vomiting, chest pain, palpitations, shortness of breath, headaches or dizziness. No acute events. Per nursing, patient reported 6/10 abdominal pain that was relieved with hydrocodone. Exam Vital Signs Vital Sign - Last Date Time Temp Pulse Resp B/P Pulse Ox O2 Delivery O2 Flow Rate FiO2 09/03/16 14:22 Room Air 09/03/16 12:32 36.7 67 16 128/51 92 2.00 09/02/16 16:02 97 Intake and Output 09/02/16 09/02/16 09/03/16 Cumulative From/Thru 15:00 23:00 07:00 08/30/16 12:16 - 09/03/16 06:46 Intake Total 720 ml 240 ml 5113 ml Output Total 1050 ml 125 ml 3304 ml Balance -330 ml 115 ml 1809 ml Intake Oral 720 ml 240 ml 2500 ml IV Total 2613 ml Output Urine Total 1050 ml 125 ml 3302 ml Urine/Stool Mix 2 ml # Voids 3 # Bowel Movements 0 1 Exam General: Well-developed, well-nourished, elderly female, appropriately interactive HEENT: Normocephalic, atraumatic. Pupils equal, round, and reactive to light and accommodation. Anicteric sclerae. Moist mucosa. Neck: Supple. No jugular venous distension.No lymphadenopathy or thyromegaly. Cardiovascular: Regular rate and rhythm with no murmurs, rubs, or gallops appreciated Pulmonary: Clear to auscultation bilaterally with no crackles, wheezes, or rhonchi. Normal respiratory effort with no use of accessory muscles. Abdomen: Bowel tones present. Soft, diffusely tender to palpation, nondistended. No hepatosplenomegaly or masses appreciated. Bruising surround the right femoral cath site, no signs of active bleeding, no hematoma. Extremities: No clubbing, cyanosis, edema, or lymphadenopathy appreciated. Skin: Normal temperature, turgor, and texture; no rash, ulcers, or subcutaneous nodules appreciated. Neurological: Cranial nerves grossly intact. Alert and oriented. Generalized weakness and deconditioning. IVs and Medications Medications Reviewed: Medications were reviewed in detail Lab and Diagnostics White Blood Count 6.9, Red Blood Count 2.54, Hemoglobin 7.5, Hematocrit 24.0, Mean Corpuscular Volume 94.5, Mean Corpuscular Hemoglobin 29.5, Mean Corpuscular Hemoglobin Concent 31.3, Red Cell Distribution Width 12.8, Platelet Count 126, Neutrophils (%) (Auto) 60.6, Lymphocytes (%) (Auto) 23.6, Monocytes ( %) (Auto) 10.3, Eosinophils (%) (Auto) 4.9, Basophils (%) (Auto) 0.3 Sodium Level 138, Potassium Level 4.2, Chloride Level 106, Carbon Dioxide Level 22, Blood Urea Nitrogen 15, Creatinine 0.97, Estimat Glomerular Filtration Rate 78, Glucose Level 124, Calcium Level 8.6 Result Diagram: 09/03/16 0510 09/03/16 0510 Microbiology MRSA screen negative. . X-Rays, CTs and MRIs X-RAY CHEST ONE VIEW, PORTABLE (08/31/16) IMPRESSION: No acute cardiopulmonary disease. Dictated by: Ambrose Simeon [facility] Interpreted: Ana Luisa Mckeon MD on 08/30/2016 at 13:26 Transcribed by: JATIN on 08/30/2016 at 13:26 Approved by: Ana Luisa Mckeon MD, PhD on 08/30/2016 at 16:44 PROCEDURE: Bobby Obrien M.D. on 08/31/2016 at 14:35 1. Selective celiac/superior mesenteric arteriography. 2. Angioplasty of common celiac/superior mesenteric artery origin stent. 3. Angioplasty of proximal superior mesenteric artery. 4. Conscious sedation x140 minutes. IMPRESSION: 1. High-grade in-stent and peristent stenosis within the proximal celiac/ superior mesenteric artery trunk, resolved following 6 mm angioplasty. 2. High-grade stenosis within the proximal superior mesenteric artery, with only mild residual stenosis following 6 mm angioplasty. 3. Right groin pseudoaneurysm was encountered following the procedure, which responded to graded compression. CT KUB (08/31/16) IMPRESSION: 1. Moderate retroperitoneal and extraperitoneal hemorrhage arising from a right common femoral artery puncture. 2. Large hiatal hernia. 3. Small right pleural effusion. Dictated and approved by: Bobby Obrien M.D. on 08/31/2016 at 14:21 US DUPLEX DOPPLER UNILATERAL LEG ARTERIES, RIGHT IMPRESSION: Small right groin pseudoaneurysm initially demonstrated with 2:15 minute intervals up sonographic compression which completely thrombosed aneurysm. Dictated by: Ambrose Simeon [facility] Interpreted: Bobby Obrien MD on 08/31/2016 at 16: 17 Transcribed by: KARI on 08/31/2016 at 16:17 Approved by: Bobby Obrien M.D. on 08/31/2016 at 16:33 . 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 Admitted for possible stent revision of the SMA by interventional radiology. Hospital day #5. 1. Pseudoaneurysm, right groin. Resolved - Noted on ultrasound following elective celiac/superior mesenteric arteriography. - Responded to graded compression. Associated with retroperitoneal/ extraperitoneal hemorrhage. - H/H trended down slightly, patient does have history of chronic anemia and recent melena. - Continue to monitor for signs of active bleeding. - CBC in the morning 2. Chronic mesenteric ischemia, s/p celiac trunk and SMA stent placement. Present on admission. Active. - Celiac/superior mesenteric arteriography, per Interventional radiology with angioplasty. - Per IR, patient with persistent stenosis celiac/SMA trunk, resolved following angioplasty. - H/H trended down, Hb 7.5 and patient with melena two days ago without recurrence today. - Trend H/H, contact Interventional Radiology to assess for additional imaging or intervention for pt's abdominal pain. - Check lactic acid for repeat abdominal pain - Advance diet as tolerated and encourage oral intake. 3. Coronary status post 4-vessel CABG with stenting and peripheral arterial disease. Chronic. - Continue aspirin, clopidogrel and statin therapy. 4. Chronic CHF, secondary to systolic dysfunction. Present on admission. Active. - Pt not in acute exacerbation. Hypotensive secondary to #1, resolved. - Continue home dosing: amlodipine, carvedilol, enalapril, furosemide 5. Chronic Hypertension, present on admission. - Continue Enalapril and Amlodipine 6. Chronic anemia, in setting of acute retroperitoneal/extraperitoneal hemorrhage. - H/H trending down slowly, will continue to monitor. - No signs of active bleeding. - Transfusion threshold Hb < 7.0. 7. Hypothyroidism, chronic. Present on admission. Presumed stable. - Continue home dosing: levothyroxine 50 mcg daily 8. Hyperlipidemia, chronic. Present on admission. Active. - Continue home dosing atorvastatin, 40mg po hs 9. Hyperglycemia, unknown chronicity. Present on admission. Active. - No known hx of diabetes, HbA1c on 04/25/16 was 6.1. - Serum glucose on admission, 118. - Bedside glucose monitoring - Low-dose correctional insulin, per protocol. Acetaminophen-fever/headache/mild/moderate pain Antiemetics, as needed Bowel regimen, as needed. High risk medications: IV morphine as needed Disposition: Anticipate discharge to SNF in 1-2 days. Patient is weak and had episodes of black tarry stool two nights ago and a drop in hemoglobin. Will continue to monitor for signs of bleeding and contact Interventional Radiology for recommendations on further imaging or workup for intermittent episodes of abdominal pain. Family has requested [facility] in [facility] for potential rehab, pending approval at this time. Pain Evaluation: Adequate Pain Control GI Prophylaxis: Not indicated VTE Prophylaxis: SCDs VTE Mechanical Devices: Intermittant Pneumatic CD Resuscitation Status: CPR: Attempt Resuscitation Attending Statement The patient was seen and examined together with Dr. Lira on 09-03-16 and I agree with the history, exam and plan as outlined in the note above. Rosalba Lira DO Sep 03, 2016 15:22 Codie Hopkins MD Sep 04, 2016 17:03
--- NOTE | 2016-09-03 15:23 | NUR ---
Chest Pain, Telemetry Changes About 1342 she started complaining of 8/10 chest pain with activity while she was walking out into the hallway with Physical Therapy. She was taken back to bed and a stat EKG was taken. Spoke with Dr. Lira and Dr. Hopkins about the situation and showed them the EKG results. Once back in bed she said that her pain was still there, but improving. About 1415 the Skilled [employer] called to inform this nurse that her telemetry had been jumping between sinus rhythm and bigeminy most of the day. At this point, it was more bigeminy than sinus rhythm. Dr. Lira notified. No new orders at that time. At 1513 she was still complaining of 4/10 chest pain when asked, but appeared fairly comfortable as she was entertaining guests and talking freely with them. Notified Dr. Lira via phone and she said she would put orders in for a Troponin lab draw. Care continues. Addendum: 09/03/16 at 1743 by NAVNEET WATTS RN About 1700 she said the pain was getting even better and was about a 2/10. Lactic acid is 2.0 and Troponin was 0.010. Care continues.
[2016-09-04] VITALS (9 sets, daily range): BP systolic 104–152; BP diastolic 46–58; PULSE 48–79; RESP 18–20; O2SAT 92–97
[2016-09-04 05:17] LABS: Mean Corpuscular Hemoglobin 30.3 pg (27.0-35.0); Mean Corpuscular Volume 93.7 fL (81-100)
--- NOTE | 2016-09-04 06:35 | NUR ---
Dyspnea At approx. 2300, pt requests "I need to sit up. Help me sit up. I have to sit up." Pt assisted to 90 degrees upright position d/t pt report of acute dyspnea. Pt states "I just feel like I can't catch my breath." SpO2 95-97% on 2L NC. Spontaneous recovery without further intervention, pt able to rest, no further dyspneic episodes this shift.
[2016-09-04] MEDS: 0.9% Sodium Chloride 1,000 ML IV SCH (07:00)
--- NOTE | 2016-09-04 11:07 | NUR ---
NUTRITION ASSESSMENT: ASSESS:85 YO female readmitted with progressive mesenteric ischemia, causing severe abdominal and chest pain; s/p celiac trunk and SMA stent placement. Now s/p celiac/superior mesenteric arteriography, per Interventional radiology with angioplasty. Patient is weak and had episodes of black tarry stool three nights ago and a drop in hemoglobin. Code status: full. PMHx:CAD, HTN, dyslipidemia, CVA, hypothyroid, colon cancer status post colectomy. DIET:Heart healthy. PO intake 25% - 50% trays. LABS: Reviewed. Glu 123, Alb 3.0. MEDICATIONS: Reviewed. Lasix, synthroid. NUTRITION FOCUSED PHYSICAL ASSESSMENT: GI symptoms / stool: BM x 1 today.Nikolas: 22. Skin Integrity: No issues reported. ANTHROPOMETRICS: Current Wt: 72.6 kgBMI: 27.0 kg/m2.Admit weight: 70.45 kg. IBW: 54.5 kg (129% IBW) ESTIMATED NEEDS: Calories: 1550 - 1761 kcal (22 - 25 kcal / kg BW) Protein: 56 0 70 g protein (0.8 - 1.0 g / kg BW) NUTRITION DIAGNOSIS: 1)Inadequate oral intake related to inability to consume sufficient energy, as evidenced by PO intake 25% - 50% trays. INTERVENTION: 1) Will add Ensure to lunch and dinner trays. MONITOR/EVALUATE: Diet / supplement tolerance, PO intake, labs, GI/nutrition status. Follow up per moderate nutrition risk guidelines.
--- NOTE | 2016-09-04 12:35 | PCM.PNMED ---
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 Admitted for stent revision of the SMA by interventional radiology. Hospital day #6. Patient sitting up in bed, alert and oriented, appears comfortable. Denies nausea, vomiting, chest pain, palpitations, shortness of breath, headaches or dizziness. No acute events. Per nursing, patient had an episode of dyspnea with SpO2 of 95- 97% on 2L nasal cannula. Exam Vital Signs Vital Sign - Last Date Time Temp Pulse Resp B/P Pulse Ox O2 Delivery O2 Flow Rate FiO2 09/04/16 07:29 36.5 64 18 127/58 95 Nasal Cannula 2.00 09/02/16 16:02 97 Intake and Output 09/03/16 09/03/16 09/04/16 Cumulative From/Thru 15:00 23:00 07:00 08/30/16 12:16 - 09/04/16 06:03 Intake Total 520 ml 240 ml 5873 ml Output Total 450 ml 400 ml 4154 ml Balance 70 ml -160 ml 1719 ml Intake Oral 520 ml 240 ml 3260 ml IV Total 2613 ml Output Urine Total 450 ml 400 ml 4152 ml Urine/Stool Mix 2 ml # Voids 2 5 # Bowel Movements 1 2 Exam General: Well-developed, well-nourished, elderly female, appropriately interactive HEENT: Normocephalic, atraumatic. Pupils equal, round, and reactive to light and accommodation. Anicteric sclerae. Moist mucosa. Neck: Supple. No jugular venous distension.No lymphadenopathy or thyromegaly. Cardiovascular: Regular rate and rhythm with no murmurs, rubs, or gallops appreciated Pulmonary: Clear to auscultation bilaterally with no crackles, wheezes, or rhonchi. Normal respiratory effort with no use of accessory muscles. Abdomen: Bowel tones present. Soft, diffusely tender to palpation, nondistended. No hepatosplenomegaly or masses appreciated. Bruising surround the right femoral cath site, no signs of active bleeding, no hematoma. Extremities: No clubbing, cyanosis, edema, or lymphadenopathy appreciated. Skin: Normal temperature, turgor, and texture; no rash, ulcers, or subcutaneous nodules appreciated. Neurological: Cranial nerves grossly intact. Alert and oriented. Generalized weakness and deconditioning. IVs and Medications Medications Reviewed: Medications were reviewed in detail Lab and Diagnostics Lactic Acid Level 2.0, Troponin T < 0.010 White Blood Count 5.4, Red Blood Count 2.38, Hemoglobin 7.2, Hematocrit 22.3, Mean Corpuscular Volume 93.7, Mean Corpuscular Hemoglobin 30.3, Mean Corpuscular Hemoglobin Concent 32.3, Red Cell Distribution Width 12.9, Platelet Count 125 Sodium Level 140, Potassium Level 4.0, Chloride Level 108, Carbon Dioxide Level 21, Blood Urea Nitrogen 13, Creatinine 0.68, Estimat Glomerular Filtration Rate 118, Glucose Level 123, Calcium Level 8.6, Total Bilirubin 0.7, Aspartate Amino Transf (AST/SGOT) 12, Alanine Aminotransferase (ALT/SGPT) 5, Alkaline Phosphatase 43, Total Protein 4.7, Albumin 3.0 Result Diagram: 09/04/1643409/04/16434 Microbiology MRSA screen negative. . X-Rays, CTs and MRIs X-RAY CHEST ONE VIEW, PORTABLE (08/31/16) IMPRESSION: No acute cardiopulmonary disease. Dictated by: Ambrose Simeon [facility] Interpreted: Ana Luisa Mckeon MD on 08/30/2016 at 13:26 Transcribed by: JATIN on 08/30/2016 at 13:26 Approved by: Ana Luisa Mckeon MD, PhD on 08/30/2016 at 16:44 PROCEDURE: Bobby Obrien M.D. on 08/31/2016 at 14:35 1. Selective celiac/superior mesenteric arteriography. 2. Angioplasty of common celiac/superior mesenteric artery origin stent. 3. Angioplasty of proximal superior mesenteric artery. 4. Conscious sedation x140 minutes. IMPRESSION: 1. High-grade in-stent and peristent stenosis within the proximal celiac/ superior mesenteric artery trunk, resolved following 6 mm angioplasty. 2. High-grade stenosis within the proximal superior mesenteric artery, with only mild residual stenosis following 6 mm angioplasty. 3. Right groin pseudoaneurysm was encountered following the procedure, which responded to graded compression. CT KUB (08/31/16) IMPRESSION: 1. Moderate retroperitoneal and extraperitoneal hemorrhage arising from a right common femoral artery puncture. 2. Large hiatal hernia. 3. Small right pleural effusion. Dictated and approved by: Bobby Obrien M.D. on 08/31/2016 at 14:21 US DUPLEX DOPPLER UNILATERAL LEG ARTERIES, RIGHT IMPRESSION: Small right groin pseudoaneurysm initially demonstrated with 2:15 minute intervals up sonographic compression which completely thrombosed aneurysm. Dictated by: Ambrose Simeon RRA Interpreted: Bobby Obrien MD on 08/31/2016 at 16: 17 Transcribed by: KARI on 08/31/2016 at 16:17 Approved by: Bobby Obrien M.D. on 08/31/2016 at 16:33 . 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 Admitted for possible stent revision of the SMA by interventional radiology. Hospital day #6. 1. Pseudoaneurysm, right groin. Resolved - Noted on ultrasound following elective celiac/superior mesenteric arteriography. - Responded to graded compression. Associated with retroperitoneal/ extraperitoneal hemorrhage. - H/H trended down slightly, patient does have history of chronic anemia and recent melena. - Contact IR due to ongoing abdominal pain. - Continue to monitor for signs of active bleeding. - CBC in the morning 2. Chronic mesenteric ischemia, s/p celiac trunk and SMA stent placement. Present on admission. Active. - Celiac/superior mesenteric arteriography, per Interventional radiology with angioplasty. - Per IR, patient with persistent stenosis celiac/SMA trunk, resolved following angioplasty. - H/H trended up overnight. Appears stable, no active signs of bleeding. - Trend H/H, contact Interventional Radiology to assess for additional imaging or intervention for pt's abdominal pain. - Check lactic acid for repeat abdominal pain - Advance diet as tolerated and encourage oral intake. 3. Coronary status post 4-vessel CABG with stenting and peripheral arterial disease. Chronic. - Continue aspirin, clopidogrel and statin therapy. 4. Chronic CHF, secondary to systolic dysfunction. Present on admission. Active. - Pt not in acute exacerbation. Hypotensive secondary to #1, resolved. - Continue home dosing: amlodipine, carvedilol, enalapril, furosemide 5. Chronic Hypertension, present on admission. - Continue Enalapril and Amlodipine 6. Chronic anemia, in setting of acute retroperitoneal/extraperitoneal hemorrhage. - H/H trending down slowly, will continue to monitor. - No signs of active bleeding. - Transfusion threshold Hb < 7.0. 7. Hypothyroidism, chronic. Present on admission. Presumed stable. - Continue home dosing: levothyroxine 50 mcg daily 8. Hyperlipidemia, chronic. Present on admission. Active. - Continue home dosing atorvastatin, 40mg po hs 9. Hyperglycemia, unknown chronicity. Present on admission. Active. - No known hx of diabetes, HbA1c on 04/25/16 was 6.1. - Serum glucose on admission, 118. - Bedside glucose monitoring - Low-dose correctional insulin, per protocol. Acetaminophen-fever/headache/mild/moderate pain Antiemetics, as needed Bowel regimen, as needed. High risk medications: IV morphine as needed Disposition: Anticipate discharge to SNF in 1-2 days. Patient is weak and had episodes of black tarry stool two nights ago and a drop in hemoglobin. Will continue to monitor for signs of bleeding and contact Interventional Radiology for recommendations on further imaging or workup for intermittent episodes of abdominal pain. Family has requested [facility] in [facility] for potential rehab, pending approval at this time. Pain Evaluation: Adequate Pain Control GI Prophylaxis: Not indicated VTE Prophylaxis: SCDs VTE Mechanical Devices: Intermittant Pneumatic CD Resuscitation Status: CPR: Attempt Resuscitation Attending Statement The patient was seen and examined together with Dr. Lira on 09-04-16 and I agree with the history, exam and plan as outlined in the note above. Rosalba Lira DO Sep 04, 2016 07:39 Codie Hopkins MD Sep 05, 2016 16:07
--- NOTE | 2016-09-04 17:45 | NUR ---
Activity Pt walked in hallway with PT, SBA with FWW. Up to bathroom, uses FWW and SBA. Denies pain or discomfort. Groin site unchanged. Tolerated meals today, without abd pain. H&H improved today. Likely d/c tomorrow.
[2016-09-04] MEDS: HYDROcodone-APAP 7.5-325 mg Tablet PO PRN (18:17)
--- NOTE | 2016-09-04 18:18 | NUR ---
Abd Pain pt c/o 04/11 abd up to chest pain. Vicodin administered, notified, STAT lactic acid ordered.
[2016-09-05] VITALS (8 sets, daily range): BP systolic 117–156; BP diastolic 50–62; PULSE 49–74; RESP 16–21; O2SAT 94–97
[2016-09-05 04:50] LABS: Mean Corpuscular Hemoglobin 30.3 pg (27.0-35.0); Mean Corpuscular Volume 92.9 fL (81-100)
--- NOTE | 2016-09-05 06:09 | NUR ---
Labs Pt stable throughout shift, AOx3, denies pain, able to rest. Denies dyspnea at rest or on exertion, VSS. AM H/H 8.1 and 24.8. No bowel movements this shift.
[2016-09-05] MEDS: Polyethylene Glycol (PEG) 17 Gm Powder PO SCH (07:38)
[2016-09-05] MEDS: HYDROcodone-APAP 7.5-325 mg Tablet PO PRN (12:30)
--- NOTE | 2016-09-05 15:33 | NUR ---
Abdominal/Chest Pain About 1225 she began complaining of 7/10 upper abdominal pain that came up into her chest. Requested 1 tablet of [place] and chicken broth. Gave these to her. Checked on her a few minutes later and she was sitting up, eating her lunch, talking to family/friends with a cheerful expression on her face. Said she felt much better. Notified Dr. Lira of this and she said she would address the issue in her rounds. No new orders from nursing standpoint other than to keep monitoring her. Upon reassessing her later she reported 0/10 pain. Has not complained of pain since. Currently taking a nap. Care continues.
--- NOTE | 2016-09-05 16:10 | PCM.PNMED ---
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 Admitted for stent revision of the SMA by interventional radiology. Hospital day #7. No acute events overnight. Per nursing, patient alert and oriented x3 and without pain. Today, patient reports intermittent abdominal pain and chest pain that does appear related to eating. She states that it feels similar to the pain she experienced prior to the stent but that it now will radiate up through her chest to the back of her throat. She denies nausea, vomiting,hematemesis, diarrhea, constipation, bloody or dark tarry stool. Chest/abdominal pain relieved with hydrocodone and resolves over time. Exam Vital Signs Vital Sign - Last Date Time Temp Pulse Resp B/P Pulse Ox O2 Delivery O2 Flow Rate FiO2 09/05/16 03:36 36.9 49 18 117/57 94 Room Air 09/04/16 15:30 2.00 09/02/16 16:02 97 Intake and Output 09/04/16 09/04/16 09/05/16 Cumulative From/Thru 15:00 23:00 07:00 08/30/16 12:16 - 09/05/16 05:07 Intake Total 510 ml 200 ml 6583 ml Output Total 800 ml 400 ml 5354 ml Balance -290 ml -200 ml 1229 ml Intake Oral 510 ml 200 ml 3970 ml IV Total 2613 ml Output Urine Total 800 ml 400 ml 5352 ml Urine/Stool Mix 2 ml # Voids 5 # Bowel Movements 3 0 5 Exam General: Well-developed, well-nourished, elderly female, appropriately interactive HEENT: Normocephalic, atraumatic. Pupils equal, round, and reactive to light and accommodation. Anicteric sclerae. Moist mucosa. Neck: Supple. No jugular venous distension.No lymphadenopathy or thyromegaly. Cardiovascular: Regular rate and rhythm with no murmurs, rubs, or gallops appreciated Pulmonary: Clear to auscultation bilaterally with no crackles, wheezes, or rhonchi. Normal respiratory effort with no use of accessory muscles. Abdomen: Bowel tones present. Soft, diffusely tender to palpation, nondistended. No hepatosplenomegaly or masses appreciated. Bruising surround the right femoral cath site, no signs of active bleeding, no hematoma. Extremities: No clubbing, cyanosis, edema, or lymphadenopathy appreciated. Skin: Normal temperature, turgor, and texture; no rash, ulcers, or subcutaneous nodules appreciated. Neurological: Cranial nerves grossly intact. Alert and oriented. Generalized weakness and deconditioning. IVs and Medications Medications Reviewed: Medications were reviewed in detail Lab and Diagnostics White Blood Count 5.7, Red Blood Count 2.67, Hemoglobin 8.1, Hematocrit 24.8, Mean Corpuscular Volume 92.9, Mean Corpuscular Hemoglobin 30.3, Mean Corpuscular Hemoglobin Concent 32.7, Red Cell Distribution Width 12.8, Platelet Count 151 Sodium Level 139, Potassium Level 3.8, Chloride Level 105, Carbon Dioxide Level 22, Blood Urea Nitrogen 11, Creatinine 0.62, Estimat Glomerular Filtration Rate 131, Glucose Level 105, Calcium Level 8.6 Result Diagram: 09/05/1643409/05/16434 Microbiology MRSA screen negative. . X-Rays, CTs and MRIs X-RAY CHEST ONE VIEW, PORTABLE (08/31/16) IMPRESSION: No acute cardiopulmonary disease. Dictated by: Ambrose Simeon [facility] Interpreted: Ana Luisa Mckeon MD on 08/30/2016 at 13:26 Transcribed by: JATIN on 08/30/2016 at 13:26 Approved by: Ana Luisa Mckeon MD, PhD on 08/30/2016 at 16:44 PROCEDURE: Bobby Obrien M.D. on 08/31/2016 at 14:35 1. Selective celiac/superior mesenteric arteriography. 2. Angioplasty of common celiac/superior mesenteric artery origin stent. 3. Angioplasty of proximal superior mesenteric artery. 4. Conscious sedation x140 minutes. IMPRESSION: 1. High-grade in-stent and peristent stenosis within the proximal celiac/ superior mesenteric artery trunk, resolved following 6 mm angioplasty. 2. High-grade stenosis within the proximal superior mesenteric artery, with only mild residual stenosis following 6 mm angioplasty. 3. Right groin pseudoaneurysm was encountered following the procedure, which responded to graded compression. CT KUB (08/31/16) IMPRESSION: 1. Moderate retroperitoneal and extraperitoneal hemorrhage arising from a right common femoral artery puncture. 2. Large hiatal hernia. 3. Small right pleural effusion. Dictated and approved by: Bobby Obrien M.D. on 08/31/2016 at 14:21 US DUPLEX DOPPLER UNILATERAL LEG ARTERIES, RIGHT IMPRESSION: Small right groin pseudoaneurysm initially demonstrated with 2:15 minute intervals up sonographic compression which completely thrombosed aneurysm. Dictated by: Ambrose Simeon RRA Interpreted: Bobby Obrien MD on 08/31/2016 at 16: 17 Transcribed by: KARI on 08/31/2016 at 16:17 Approved by: Bobby Obrien M.D. on 08/31/2016 at 16:33 . 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 Admitted for possible stent revision of the SMA by interventional radiology. Hospital day #7. 1. Abdominal pain, chronic. Present on admission. Active. - Pt reports intermittent epigastric and chest pain similar to pain prior to stent placement. - No apparent relationship of pain with eating, pain resolves hydrocodone - IR recommends no further imaging/intervention at this time. - Continue to monitor, oral hydrocodone prn and trial of PPI for possible reflux 2. Pseudoaneurysm, right groin. Resolved - Noted on ultrasound following elective celiac/superior mesenteric arteriography. - Responded to graded compression. Associated with retroperitoneal/ extraperitoneal hemorrhage. - H/H trended down slightly, patient does have history of chronic anemia and recent melena. - Contact IR due to ongoing abdominal pain. - Continue to monitor for signs of active bleeding. 3. Chronic mesenteric ischemia, s/p celiac trunk and SMA stent placement. Present on admission. Active. - Celiac/superior mesenteric arteriography, per Interventional radiology with angioplasty. - Per IR, patient with persistent stenosis celiac/SMA trunk, resolved following angioplasty. - H/H appears stable,lactic acid wnl, no active signs of bleeding. Spoke with IR , no further imaging/intervention recommended. - Continue to monitor H/H and advance diet as tolerated 4. Coronary status post 4-vessel CABG with stenting and peripheral arterial disease. Chronic. - Continue aspirin, clopidogrel and statin therapy. 5. Chronic CHF, secondary to systolic dysfunction. Present on admission. Active. - Pt not in acute exacerbation. Hypotensive secondary to #1, resolved. - Continue home dosing: amlodipine, carvedilol, enalapril, furosemide 6. Chronic Hypertension, present on admission. - Continue Enalapril and Amlodipine 7. Chronic anemia, in setting of acute retroperitoneal/extraperitoneal hemorrhage. - H/H stable, will continue to monitor. - No signs of active bleeding. - Transfusion threshold Hb < 7.0. 8. Hypothyroidism, chronic. Present on admission. Presumed stable. - Continue home dosing: levothyroxine 50 mcg daily 9. Hyperlipidemia, chronic. Present on admission. Active. - Continue home dosing atorvastatin, 40mg po hs 10. Hyperglycemia, unknown chronicity. Present on admission. Active. - No known hx of diabetes, HbA1c on 04/25/16 was 6.1. - Serum glucose on admission, 118. - Bedside glucose monitoring - Low-dose correctional insulin, per protocol. Acetaminophen-fever/headache/mild/moderate pain Antiemetics, as needed Bowel regimen, as needed. High risk medications: IV morphine as needed Disposition: Anticipate discharge to SNF in 1-2 days. Patient is weak and had episodes of black tarry stool three nights ago and a drop in hemoglobin. Will continue to monitor for signs of bleeding and contact Interventional Radiology for recommendations on further imaging or workup for intermittent episodes of abdominal pain. Patient accepted at [facility] in [facility]. Pain Evaluation: Adequate Pain Control GI Prophylaxis: Not indicated VTE Prophylaxis: SCDs VTE Mechanical Devices: Intermittant Pneumatic CD Resuscitation Status: CPR: Attempt Resuscitation Attending Statement The patient was seen and examined together with Dr. Lira on 09-05-16 and I agree with the history, exam and plan as outlined in the note above. Rosalba Lira DO Sep 05, 2016 06:57 Codie Hopkins MD Sep 06, 2016 15:51
--- NOTE | 2016-09-05 17:56 | NUR ---
Social Work Note: Discharge Readiness Data& Assessment: Per MD pt is getting closer to being medically ready for discharge. SW met with pt at bedside to confirm discharge plan and assess for any unmet needs. Pt is excited to leave the hospital and begin rehab at [facility]. Pt is hopeful to potentially discharge tomorrow. Pt denied any other needs at this time. SW to continue to follow. Plan: Anticipated discharge to [facility] when medically ready. Pt denied any other needs at this time. SW to continue to follow. NATALIIA Martinez
[2016-09-06 03:09] VITALS: BP 121/53; PULSE 53; RESP 20; O2SAT 97
[2016-09-06 04:32] LABS: Mean Corpuscular Volume 93.3 fL (81-100)
[2016-09-06 06:03] VITALS: PULSE 65
--- NOTE | 2016-09-06 06:17 | NUR ---
no pain/activity pt denies any pain this shift, stating that even her dinner didn't bother her tonight. pt drinking sips of hot water through out the night. up with 1pa to BSC or bathroom. tele SB-SR, right groin site c/d/i
[2016-09-06 08:00] VITALS: PULSE 62
[2016-09-06 08:15] VITALS: BP 139/60; PULSE 72; RESP 18; O2SAT 95
--- NOTE | 2016-09-06 11:03 | NUR ---
Palliative Care Palliative Care received verbal order from Dr Lopez 09/06/16, however, order has been cancelled per Dr Estrella as patient is discharging today. Zunilda Siu
--- NOTE | 2016-09-06 11:16 | PCM.DIMED ---
Rosalba Lira DO 09/06/16 1108: Discharge Instructions Date of Service Sep 06, 2016 Dates of Hospitalization Aug 30, 2016 at 16:34 Discharge Diagnosis Discharge Diagnosis 1. Chronic mesenteric ischemia, s/p celiac trunk and SMA stent placement. Resolved. 2. Pseudoaneurysm,right groin. Resolved 3. Abdominal pain, chronic. Improved. 4. Coronary status post 4-vessel CABG with stenting and peripheral arterial disease. Chronic/Stable. 5. Chronic CHF, secondary to systolic dysfunction. Active/Stable. 6. Chronic Hypertension. Active/Stable. 7. Acute on chronic anemia, in setting of acute retroperitoneal/extraperitoneal hemorrhage.Acute component, Resolved 8. Hypothyroidism, chronic. Presumed stable. Active/Stable 9. Hyperlipidemia, chronic. Active/Stable. 10. Hyperglycemia, unknown chronicity. Active/Stable. Diet Heart Healthy, Diabetic Patient Instructions You will likely continue to have some abdominal pain, take the hydrocodone as needed for pain and if the pain is severe, occurs after or during meals or persists, let the Physician know. No changes were made to your medications during this hospital stay. Continue taking your medications as prescribed. Discuss your symptoms and hospital stay with your Primary Care Physician as well as the [facility] Physician. . Follow-up plan [address], [place] [address] Dr. Joseph Vivas [facility] [address] [place] [address] [address], [place] [address] [phone] . Follow-up with PCP in: 1 week (Physician at [facility]) Provider: Joseph Vivas MD Follow-up in: 4 weeks Codie Hopkins MD 09/17/16 0814: Discharge Instructions Attending's Statement The patient was seen and examined together with Dr. Lira on 09-06-16 and I agree with the history, exam and plan as outlined in the note above. Rosalba Lira DO Sep 06, 2016 11:08 Codie Hopkins MD Sep 17, 2016 08:14
--- NOTE | 2016-09-06 11:40 | NUR ---
Social Work: Discharge D: Pt discussed in morning rounds. Pt is medically stable for discharge to skilled rehab. Pt has been accepted at [facility] with Dr. Muñoz to follow. CARDROOM HAND spoke with Hreve at [facility]. They have a private room available for the pt today and can pick her up at 2:15. CARDROOM HAND met with pt and daughter at bedside to reassess and confirm dcp. Pt continues to require skilled rehab per PT notes for continued strengthening and mobility. Pt and daughter both agree with plan to d/c to [facility]. CARDROOM HAND notified them and bedside RN of transport time. PASSR, and orders faxed to [facility]. No new prescriptions ordered. Herve at [facility] confirms receipt of fax. A: Pt who still requires SNF for continued strengthening. P: Pt to discharge to [facility] today via [facility] with Dr. Muñoz to follow NATALIIA Wyman
--- NOTE | 2016-09-06 11:52 | NUR ---
Cough Patient had productive cough this am prior to am medications, patient stated it has been coming on for the past few days. Pt SPO2 at 98% room air, denies SOB. This RN raised HOB to 30 degrees, encouraged pt to cough and spit into napkin. Sputum clear, thin and moderate.
[2016-09-06 12:12] VITALS: BP 164/63; PULSE 66; RESP 18; O2SAT 98
--- NOTE | 2016-09-06 14:25 | NUR ---
Discharge instructions Discharge packet completed for discharge to [facility]. Pt. educated re: angiography and angioplasty as well and pain control and d/c medications (no changes from recorded home meds.) Pt. and daughter state they feel comfortable with d/c plans and instructions. Instructions included in packet. IV d/c'd intact. Pt. is sitting up in chair awaiting transportation.
--- NOTE | 2016-09-06 16:19 | PCM.DC.MED ---
Discharge Summary Date of Service Sep 06, 2016 Dates of Hospitalization Date of Hospital Admission Aug 30, 2016 at 16:34 Date of Discharge: Sep 06, 2016 Providers: Admitting Physician: Bobby Obrien MD Primary Care Physician: Joseph Vivas MD Attending Physician: Bobby Obrien MD Diagnosis at Time of Discharge Diagnosis at Time of Discharge 1. Chronic mesenteric ischemia, s/p celiac trunk and SMA stent placement. Resolved. 2. Pseudoaneurysm,right groin. Resolved 3. Abdominal pain, chronic. Improved. 4. Coronary status post 4-vessel CABG with stenting and peripheral arterial disease. Chronic/Stable. 5. Chronic CHF, secondary to systolic dysfunction. Stable. 6. Chronic Hypertension. Stable. 7. Acute on chronic anemia, in setting of acute retroperitoneal/extraperitoneal hemorrhage.Acute component, Resolved 8. Hypothyroidism, chronic. Presumed stable.Stable 9. Hyperlipidemia, chronic. Stable. 10. Hyperglycemia, unknown chronicity. Stable. Procedures XRay, CTs & MRIs X-RAY CHEST ONE VIEW, PORTABLE (08/31/16) IMPRESSION: No acute cardiopulmonary disease. Dictated by: Ambrose Simeon [facility] Interpreted: Ana Luisa Mckeon MD on 08/30/2016 at 13:26 Transcribed by: JATIN on 08/30/2016 at 13:26 Approved by: Ana Luisa Mckeon MD, PhD on 08/30/2016 at 16:44 XA, ARTERIOGRAM ABD SELECTIVE, 09/15/2015 PROCEDURE: Bobby Obrien M.D. on 08/31/2016 at 14:35 1. Selective celiac/superior mesenteric arteriography. 2. Angioplasty of common celiac/superior mesenteric artery origin stent. 3. Angioplasty of proximal superior mesenteric artery. 4. Conscious sedation x140 minutes. IMPRESSION: 1. High-grade in-stent and peristent stenosis within the proximal celiac/ superior mesenteric artery trunk, resolved following 6 mm angioplasty. 2. High-grade stenosis within the proximal superior mesenteric artery, with only mild residual stenosis following 6 mm angioplasty. 3. Right groin pseudoaneurysm was encountered following the procedure, which responded to graded compression. CT KUB (08/31/16) IMPRESSION: 1. Moderate retroperitoneal and extraperitoneal hemorrhage arising from a right common femoral artery puncture. 2. Large hiatal hernia. 3. Small right pleural effusion. Dictated and approved by: Bobby Obrien M.D. on 08/31/2016 at 14:21 US DUPLEX DOPPLER UNILATERAL LEG ARTERIES, RIGHT IMPRESSION: Small right groin pseudoaneurysm initially demonstrated with 2:15 minute intervals up sonographic compression which completely thrombosed aneurysm. Dictated by: Ambrose Simeon [facility] Interpreted: Bobby Obrien MD on 08/31/2016 at 16: 17 Transcribed by: KARI on 08/31/2016 at 16:17 Approved by: Bobby Obrien M.D. on 08/31/2016 at 16:33 . ECG 12 Lead EKG on admission showed sinus rhythm with a heart rate of 91 with ventricular bigeminy, prolonged PA interval, evidence of old inferior and anteroseptal infarct. . Brief History Per admission history and physical. Aug 30, 2016; Joseph Vivas MD This is an 85-year-old female with a recent admission for abdominal and chest pain. At that time she was concerned regarding recurrent mesenteric ischemia. She has had a SMA stent in place for about 6 months. She is having a lot of increased pain with eating over the last several months which seems to be escalating. She was admitted about 5 days ago with abdominal pain with normal CT scan angiogram indicating a patent SMA stent. She also had negative troponin and EKGs. She had improved clinically without intervention and requested discharge home did well for a few days and now has again crescendo severe abdominal and chest pain which appears to follow eating. No dyspepsia. No diarrhea. No abdominal bloating. In the ED no repeat imaging is performed and the patient was discussed with interventional radiology who thinks that they can do an angiogram and possible stent revision of the SMA tomorrow. Her daughter continues to wonder whether or not other mesenteric arteries might be causing the symptoms. She denies any dyspnea. Nausea vomiting or diaphoresis. . Hospital Course Catalina Meza is an 85-year-old lady with a past medical history significant for mesenteric ischemia with stenting of the celiac trunk and SMA, coronary artery disease s/p 4 vessel CABG, hypertension, hyperlipidemia, CVA, and colon cancer s /p partial colectomy who presented to the ED with worsening abdominal pain. Admitted for possible stent revision of the SMA by interventional radiology. 1. Chronic mesenteric ischemia, s/p celiac trunk and SMA stent placement. Present on admission. Resolved. - Celiac/superior mesenteric arteriography, per Interventional radiology with angioplasty. - Per IR, patient with persistent stenosis celiac/SMA trunk, resolved following angioplasty. - Patient developed a pseudoaneurysm of right femoral artery following the arteriography. After which there was a significant drop in H/H. - A stat CT abd & pelvis to evaluate for bleeding revealed a small retroperitoneal/extraperitoneal hemorrhage and patient was transfused 2units of pRBCs. - H/H was trended and stable with no active signs of bleeding. Lactic acid normalized. - Despite repeat episodes of abdominal pain, not associated with eating, no additional imaging or interventions recommended by IR. - Patient's diet was advanced as tolerated without clinically convincing evidence of ongoing mesenteric ischemia. 2. Pseudoaneurysm, right groin. Resolved - Noted on ultrasound following elective celiac/superior mesenteric arteriography and associated with small retroperitoneal/extraperitoneal hemorrhage. - Responded to graded compression. Patient was transferred to CCU following transfusion, as above. Remained hemodynamically stable without evidence of additional bleeding. - H/H trended down and patient reported an episode of melena early in hospital stay without repeat occurrence. - Patient has a history of chronic anemia and H/H appeared at baseline prior to discharge. - Spoke with Interventional Radiology and no further imaging or treatment indicated at time of discharge. 3. Coronary status post 4-vessel CABG with stenting and peripheral arterial disease, chronic. Stable. - Continued patient's home dosing of aspirin, clopidogrel and statin therapy. 4. Abdominal pain, chronic. Present on admission. Resolved. - Patient reported intermittent epigastric and chest pain similar to pain prior to SMA/celiac stent placement. - Did not have obvious relationship with eating, lactic acid normal and pain resolved with hydrocodone - Continued to monitor, patient received oral hydrocodone prn and recommend trial of PPI for possible reflux. 5. Chronic CHF, secondary to systolic dysfunction. Present on admission. Stable. - Patient did not appear to be in acute exacerbation. Hypotensive secondary to # 1, resolved. - Continued home dosing: amlodipine, carvedilol, enalapril, furosemide 6. Chronic Hypertension, present on admission. Stable - Continued Enalapril and Amlodipine 7. Acute on chronic anemia, in setting of acute retroperitoneal/extraperitoneal hemorrhage. Acute portion not present on admission, treated and resolved. - Acute anemia secondary to blood loss related to arteriography and pseudoaneurysm, as above. - Patient was transfused 2units of pRBCs and H/H was monitored throughout the hospital stay. Remained stable and appeared at baseline prior to discharge. - The transfusion threshold was set at Hb < 7.0. 8. Hypothyroidism, chronic. Present on admission. Stable. - Continued home dosing: levothyroxine 50 mcg daily 9. Hyperlipidemia, chronic. Present on admission. Stable - Continued home dosing atorvastatin, 40mg po hs 10. Hyperglycemia, unknown chronicity. Present on admission. Stable. - Patient has no known history of diabetes, HbA1c on 04/25/16 was 6.1. - Serum glucose on admission, 118. - Patient's glucose was monitored at the bedside and a low-dose correctional insulin lispro ordered as needed. . Exam Vital Signs (Last) Date Time Temp Pulse Resp B/P Pulse Ox O2 Delivery O2 Flow Rate FiO2 09/06/16 12:12 37.3 66 18 164/63 98 Room Air 09/04/16 15:30 2.00 09/02/16 16:02 97 Exam General: Well-developed, well-nourished, elderly female, appropriately interactive HEENT: Normocephalic, atraumatic. Pupils equal, round, and reactive to light and accommodation. Anicteric sclerae. Moist mucosa. Neck: Supple. No jugular venous distension.No lymphadenopathy or thyromegaly. Cardiovascular: Regular rate and rhythm with no murmurs, rubs, or gallops appreciated Pulmonary: Clear to auscultation bilaterally with no crackles, wheezes, or rhonchi. Normal respiratory effort with no use of accessory muscles. Abdomen: Bowel tones present. Soft, diffusely tender to palpation, nondistended. No hepatosplenomegaly or masses appreciated. Bruising surround the right femoral cath site, no signs of active bleeding, no hematoma. Extremities: No clubbing, cyanosis, edema, or lymphadenopathy appreciated. Skin: Normal temperature, turgor, and texture; no rash, ulcers, or subcutaneous nodules appreciated. Neurological: Cranial nerves grossly intact. Alert and oriented. Generalized weakness and deconditioning. . Test 08/31/16 05:11 08/31/16 13:18 09/01/16 03:20 09/03/16 05:10 Prothrombin Time 11.6sec (8.1-12.5) Prothromb Time International Ratio 1.08ratio Activated Partial Thromboplast Time 50.3sec (22.8-33.0) Hold Monk Top Tube Received (Received) Phosphorus Level 4.0mg/dL (2.5-4.9) Magnesium Level 1.9mg/dL (1.6-2.6) Neutrophils (%) (Auto) 60.6% (40-74) Lymphocytes (%) (Auto) 23.6% (14-46) Monocytes (%) (Auto) 10.3% (4-12) Eosinophils (%) (Auto) 4.9% (0-5) Basophils (%) (Auto) 0.3% (0-3) Test 09/03/16 16:01 09/04/16 04:35 09/04/16 18:34 09/05/16 04:35 Troponin T < 0.010ug/L (0.0-0.011) Total Bilirubin 0.7mg/dL (0.0-1.2) Aspartate Amino Transf (AST/SGOT) 12U/L (0-50) Alanine Aminotransferase (ALT/SGPT) 5U/L (0-32) Alkaline Phosphatase 43U/L (25-165) Total Protein 4.7g/dL (6.4-8.4) Albumin 3.0g/dL (3.4-5.0) Lactic Acid Level 1.2mmol/L (0.4-2.0) Sodium Level 139mEq/L (134-144) Potassium Level 3.8mEq/L (3.5-5.2) Chloride Level 105mEq/L (97-108) Carbon Dioxide Level 22mmol/L (18-29) Blood Urea Nitrogen 11mg/dL (8-27) Creatinine 0.62mg/dL (0.57-1.00) Estimat Glomerular Filtration Rate 131mL/min (>59) Glucose Level 105mg/dL (60-99) Calcium Level 8.6mg/dL (8.5-10.1) Test 09/06/16 04:20 White Blood Count 6.5th/mm3 (3.8-10.1) Red Blood Count 2.53mil/mm3 (3.90-5.20) Hemoglobin 7.6g/dL (12.0-15.6) Hematocrit 23.6% (35.0-46.0) Mean Corpuscular Volume 93.3fL (81-100) Mean Corpuscular Hemoglobin 30.0pg (27.0-35.0) Mean Corpuscular Hemoglobin Concent 32.2% (32.0-37.0) Red Cell Distribution Width 12.9% (12.3-15.4) Platelet Count 156bil/L (150-400) Microbiology Results MRSA screen negative. . Discharge Medications Discharge Medications Amlodipine (Norvasc) 5 Mg Tablet 10 MG PO DAILY (Reported) Atorvastatin Calcium (Atorvastatin Calcium) 40 Mg Tablet 40 MG PO HS (Reported) Carvedilol (Carvedilol) 3.125 Mg Tablet 3.125 MG PO BID (Reported) Clopidogrel (Clopidogrel) 75 Mg Tablet 75 MG PO DAILY Prescribed by: BALAJI NUÑEZ MD Enalapril Maleate (Enalapril Maleate) 10 Mg Tablet 20 MG PO DAILY (Reported) Furosemide (Lasix) 20 Mg Tablet 20 MG PO DAILY (Reported) Gabapentin (Gabapentin) 100 Mg Capsule 100 MG PO HS (Reported) Lactobacillus Combination No.4 (Probiotic) 1 Each Capsule 1 EACH PO DAILY ( Reported) Levothyroxine (Levoxyl) 50 Mcg Tablet 50 MCG PO DAILY (Reported) Multivitamin (Multi Vitamin Daily) 1 Each Tablet 1 EACH PO DAILY (Reported) [place]mell-3S/Dha/Epa/Fish Oil/D3 (Fish Oil + D3 Softgel) Unknown Strength Capsule 1, 000 MG PO DAILY (Reported) Polyethylene Glycol 3350 (Polyethylene Glycol 3350) 17 Gm Powd.pack 17 GM PO QAM (Reported) As needed Hydrocodone-Acetaminophen 7.5-325 mg (Hydrocodone-Acetaminophen 7.5-325 mg) 1 Each Tablet 1 TABLET PO Q6H PRN PRN For Pain Prescribed by: EMILY MOSHER MD Followup Plan Follow-up [place] [id number], [place] [id number] [address] Joseph Vivas Hospitalist [address] [place] [address] [address], [place] [id number] [phone] . Discharge Diet: Heart Healthy, Diabetic Patient Instructions You will likely continue to have some abdominal pain, take the hydrocodone as needed for pain and if the pain is severe, occurs after or during meals or persists, let the Physician know. No changes were made to your medications during this hospital stay. Continue taking your medications as prescribed. Discuss your symptoms and hospital stay with your Primary Care Physician as well as the [facility] Physician. . Follow-up with PCP in: 1 week (Physician at [facility]) Provider: Joseph Vivas MD Follow-up in: 4 weeks Attending Statement The patient was seen and examined together with Dr. Lira on 09-06-16 and I agree with the history, exam and plan as outlined in the note above. Rosalba Lira DO Sep 06, 2016 15:48 Codie Hopkins MD Sep 17, 2016 08:14
[2016-09-07] MEDS ORDERED: Pantoprazole 20 mg ER24 Tablet PO SCH (07:30)
== END 2016-09-06 14:35 | DRG 357 ==
LOC: SED 12:05 → SPI 13:51 → PCC 16:34 → OBSVTOIN 16:34 → CCU 08-31 14:31 → PCC 09-01 08:00
PROVIDERS: ADMIT Radiology Diagnostic Radiology; ATTEND Hospitalist
PROC: 04753ZZ Dilation of Superior Mesenteric Artery, Percutaneous Approach (ICD-10-PCS; principal; 2016-08-31)
PROC: 04713ZZ Dilation of Celiac Artery, Percutaneous Approach (ICD-10-PCS; 2016-08-31)
PROC: B4141ZZ Fluoroscopy of Superior Mesenteric Artery using Low Osmolar Contrast (ICD-10-PCS; 2016-08-31)
DX: K55.1 Chronic vascular disorders of intestine (principal); I50.22 Chronic systolic (congestive) heart failure; I77.4 Celiac artery compression syndrome; I97.638 Postprocedural hematoma of a circulatory system organ or structure following other circulatory system procedure; I10 Essential (primary) hypertension; E78.5 Hyperlipidemia, unspecified; E03.9 Hypothyroidism, unspecified; Z95.1 Presence of aortocoronary bypass graft; I25.10 Atherosclerotic heart disease of native coronary artery without angina pectoris; Z85.038 Personal history of other malignant neoplasm of large intestine; I73.9 Peripheral vascular disease, unspecified; R73.9 Hyperglycemia, unspecified; T85.858A Stenosis due to other internal prosthetic devices, implants and grafts, initial encounter; R58 Hemorrhage, not elsewhere classified; D64.9 Anemia, unspecified